=== PATIENT | male | born 1980 | race Caucasian/White ===

== ENCOUNTER 2024-08-02 09:21 | Outpatient (AMB) | payer OTHER, SELFPAY ==
--- NOTE | 2024-08-02 09:28 | MHC.PC.OV ---
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 Allergies No Known Allergies Allergy (Verified 08/02/24 09:38) Medication List - Last Reconciled 08/02/24 by Nathaniel Fleming CNP buprenorphine-naloxone 8-2 mg (Suboxone) 1 film buccal DAILY Tobacco use date assessed: 08/02/24 Dental Screening Dental Screen Date: 08/02/24 Did you have a dental visit in the last 12 months?: Yes Did you have a dental problem in the last 6 months where you did not have access to dental care?: No Was dental information given to patient?: Patient has dentist HPI HPI Comments History of Present Illness Details New patient Prior PCP:?[place] [facility] Last office visit/CPE: About 2 years Acute issue(s): Anxiety and Depression -He notes h/o Hydroxyzine 25mg daily w/o improvement. He took a low dose of Sertaline for 3-4 months without improvement He notes that he has been experiencing panic attack symptoms ( chest feels like it's going to blow, lack of energy in doing things, and social isolation) at least weekly for about a year. He notes that his anxiety symptoms have worsened in the pat 6-12 months. His sleep is sometimes interrupted by anxiety. 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 He get his Suboxone from a clinic He notes that he generally eats healthy. He does not exercise routinely He requests testosterone check. He notes that he checked his testosterone a few months ago and was below 100 PMHx: Anxiety, depression, OSCAR in remission SurgHx: None FHx: Mom: Mental illness. Dad: HTN, HLD SocHx: Smokes 10 cigarettes daily and has been smoking half a pack daily for thhe past 20 years . Drinks 1 shot of whiskey 1-2 times monthly . No recreational drugs Last eye exam was a couple years ago Last tetanus was 3-4 years ago He has not been vaccinated for the flu this season but intends to get vaccinated from the pharmacy [facility] Medical History (Updated 08/02/24 @ 10:13 by Nathaniel Fleming CNP) Shingles Depression Anxiety Family History (Updated 08/02/24 @ 09:40 by Aruna Hernández MA) Mother FH: mental illness Father High blood pressure High cholesterol Sister High blood pressure High cholesterol Diabetes Social History Housing: House Patient Tobacco Use Status: Current everyday Tobacco user Cigarette Packs Per Day: 0.5 Cigarettes Per Day: 10 e-Cigarette/Vaping Use: Never Used Second Hand Smoke Exposure: No service: No Current occupational status: employed Current occupational exposures/hazards: No Cognitive needs: No Hearing needs: No Vision needs: No Questionnaire PHQ-9 Over the last 2 weeks, how often have you been bothered by any of the following problems? 1. Little interest or pleasure in doing things: several days 2. Feeling down, depressed, or hopeless: not at all 3. Trouble falling or staying asleep, or sleeping too much: more than half the days 4. Feeling tired or having little energy: several days 5. Poor appetite or overeating: not at all 6. Feeling bad about yourself - or that you are a failure or have let yourself or your family down: more than half the days 7. Trouble concentrating on things, such as reading the newspaper or watching television: several days 8. Moving or speaking so slowly that other people could have noticed. Or the opposite - being so fidgety or restless that you have been moving around a lot more than usual: several days 9. Thoughts that you would be better off or of hurting yourself in some way: not at all Total score: 8 Depression Screening Interpretation: Positive Depression Screening Follow-up: Existing condition and New Medication prescribed Depression Screening Done: Yes 50853 - PHQ-9 Billing: Yes Source: Developed by Drs. Justice Reis, Georgia Reed, Devin Echavarria and colleagues, with an educational kenyatta from [employer]. Thrive Questionnaire Date Thrive assessed: 08/02/24 I am a: Patient What is your living situation today?: I have a steady place to live Within the past 12 months, did the food you bought not last and you didn't have the money to get more?: Never true Within the past 12 months, did you worry whether your food would run out before you got money to buy more?: Never true Do you have trouble paying for medicines?: No Do you have trouble getting transportation to medical appointments?: No Do you have trouble paying your heating and electricity bill?: No Do you have trouble with day-to-day activities such as bathing, preparing meals, shopping, managing finances, etc.?: No Are you currently unemployed and looking for a job?: Yes Are you interested in more education?: Yes Please select the resources that you would like help with: Job search/training and Education Currently or been in a relationship where the following occur: No concerns reported THRIVE Score: 0 AUDIT C Alcohol Use Questionnaire (AUDIT-C) 1. How often do you have a drink containing alcohol?: Monthly or less 2. How many drinks containing alcohol do you have on a typical day when you are drinking?: 1 or 2 3. How often do you have six or more drinks on one occasion?: Never Total Score: 1 Score Reviewed/Action Taken: Yes JORGE-7 AMB Questionnaire JORGE-7 Date JORGE - 7 assessed: 08/02/24 Feeling nervous, anxious, or on edge: 3 = Nearly every day Not being able to stop or control worryin = Nearly every day Worrying too much about different things: 3 = Nearly every day Trouble relaxin = Nearly every day Being so restless that it is hard to sit still: 3 = Nearly every day Becoming easily annoyed or irritable: 3 = Nearly every day Feeling afraid as if something awful might happen: 3 = Nearly every day Total JORGE-7 score (0-4 normal; 5-9 mild; 10-14 moderate; 15-21 severe): 21 Source: Developed by Drs. Justice Reis, Georgia Reed, Devin Echavarria and colleagues, with an educational kenyatta from [employer]. JORGE-7 Assessment Billing JORGE-7 Assessment Tool: JORGE-7 Assessment 21255 Review of Systems Const Details: Denies chills, Denies fatigue, Denies fever(s), Denies headache(s) and Denies weakness HEENT Denies change in vision, Denies dizziness, Denies headache(s), Denies hearing loss, Denies nasal congestion, Denies sinus pain, Denies sinus pressure and Denies sore throat Card Denies chest pain, Denies lightheadedness, Denies dyspnea and Denies other (palpitations) Resp Denies cough, Denies dyspnea and Denies wheezing GI Denies abdominal pain, Denies melena, Denies hematochezia, Denies change in bowel habits, Denies dyspepsia and Denies nausea Denies hematuria and Denies dysuria Musc Denies abnormal gait, Denies myalgias, Denies arthralgias, Denies numbness and Denies tingling Skin/Breast Denies rash, Denies unusual bruising and Denies wounds Neuro Denies abnormal gait, Denies dizziness, Denies headache(s), Denies memory loss, Denies numbness, Denies Sensory deficit (Neuro), Denies tingling and Denies weakness Psych Denies anxiety, Denies depression and Denies memory loss Endo Denies cold intolerance, Denies fatigue, Denies heat intolerance, Denies polydipsia and Denies polyuria Hernán/Lymph Denies easy bleeding and Denies easy bruising Aller/Immun Denies wheezing Physical exam (Primary Care) Vital Signs: Last Vital Signs Temp 98.0 F 08/02/24 09:34 Pulse 76 08/02/24 09:34 Resp 16 08/02/24 09:34 BP 120/70 08/02/24 09:34 Pulse Ox 97 08/02/24 09:34 Oxygen Delivery Method Room Air 08/02/24 09:34 BMI result Body Mass Index 35.2 Tobacco/Smoking Status: Tobacco use Status Tobacco use date assessed 08/02/24 08/02/24 09:40 Patient Tobacco Use Status Current everyday Tobacco 08/02/24 09:40 e-Cigarette/Vaping Use Never Used 08/02/24 09:40 PHQ-9: PHQ-9 Score PHQ-9: Total score 8 08/02/24 10:27 Depression Screening Interpretation: Positive Depression Screening Follow-up: Existing condition and New Medication prescribed Thrive Assessment: Date of Thrive Assessment Date Thrive assessed 08/02/24 08/02/24 09:46 Currently or been in a relationship where the following occur: No concerns reported Const Other: General: no acute distress, well developed, alert and awake Nutritional Appearance: well nourished Orientation/consciousness: patient oriented x3 HENMT Head: Yes normocephalic and Yes atraumatic Ears: hearing grossly normal bilaterally and TM's normal bilaterally General nose exam: Normal external nose present and Normal nares present Mouth: Normal oral and palatal mucosa present and moist mucous membranes Teeth and gingiva: dentition normal Throat: Yes oropharynx normal Eyes Pupils: Equal, round and reactive pupils present and Pupil accommodation reflex normal EOM: EOMs intact bilaterally Neck Neck: Yes normal visual inspection, Yes no lymphadenopathy and Yes trachea midline Thyroid: Thyroid normal Carotids: no bruits Lymphatic: no lymphadenopathy noted Chest Chest palpation & inspection: normal inspection of the chest Resp Effort & Inspection: normal respiratory effort Auscultation: clear to auscultation bilaterally Cardio Rate: regular rate Rhythm: regular rhythm Heart sounds: S1 normal heart sound present, S2 normal heart sound present, no gallops, no murmurs and no rubs Bruits: no abdominal aortic bruits and no carotid bruits GI Palpation (GI): No Abdominal aortic bruit present, Soft to palpation, nontender, No hepatosplenomegaly present and No Rebound tenderness present Auscultation: normal bowel sounds General: Yes no CVA tenderness Back/Spine/Pelvis Back: no CVA tenderness Cervical Spine: cervical ROM normal and No Cervical spine tenderness Thoracic/Lumbar Spine: thoraco-lumbar ROM normal, No pain with thoraco-lumbar ROM, No thoracic spinal tenderness and No lumbar spinal tenderness Skin General: warm and dry. Normal skin color. Normal skin turgor Lesions: no lesions Rashes: no rashes Trauma: no lacerations or abrasions Wounds: no wounds Nails: normal Neuro General: patient oriented x3, gait normal and CN's II-XI intact bilaterally Cranial nerves: Yes Equal, round and reactive pupils present Cognition (Neuro): normal cognition Gait exam (Neuro): Normal gait present Motor exam (neuro): 5/5 motor strength present throughout Sensory Exam: No Sensory deficit (Neuro) Deep tendon reflexes (DTR's): Right patellar reflex intensity grade: 2+ and Left patellar reflex intensity grade: 2+ Extrem General: Yes normal to inspection, No edema and No calf tenderness Psych Appearance: grossly normal Affect: normal affect Attitude: cooperative Thought process: Normal thought process present Coding Level of Care Code New Pt Level 4 (18467) New Pt Prev Care 40-64y(70427) Diagnoses Normal physical examination, routine Z00.00 Anxiety F41.9 Depression F32.A Obesity (BMI 30-39.9) E66.9 Eye exam, routine Z01.00 Smoking 1/2 pack a day or less F17.210 Laboratory tests ordered as part of a complete physical exam (CPE) Z00.00 Additional Codes JORGE-7 Assessment Billing - JORGE-7 Assessment Tool: JORGE-7 Assessment 71250 ([id number]) Assessment & Plan Assessment & Plan (1) Normal physical examination, routine: Code(s): Z00.00 - Encounter for general adult medical examination without abnormal findings Category: Medical Plan: No significant physical restrictions or limitations noted Healthy diet and routine exercise encouraged Follow-up in 2 weeks for anxiety and depression or sooner with worsening or new symptoms Verbalized understanding and agreed with the treatment plan (2) Anxiety: Code(s): F41.9 - Anxiety disorder, unspecified Category: Medical Plan: Reports history of anxiety and depression. He notes anxiety symptoms with intermittent feelings of panic attacks. His anxiety has progressively worsened within the past 6-12 months. Anxiety symptoms sometimes interferes with his sleep. Hydroxyzine was not effective. He was on a low-dose of sertraline for 3-4 months without improvement. He denies SI/HI PHQ-9 and JORGE-7 scores revealed mild depression and severe anxiety respectively Will start fluoxetine 20 mg daily. Advised to take as prescribed. Instructed on the risks, benefits, and potential adverse reactions of the medication Routine exercise encouraged Follow-up in 2 weeks or sooner with worsening or new symptoms Verbalized understanding and agreed with treatment plan (3) Depression: Code(s): F32.A - Depression, unspecified Category: Medical Plan: Plan as above (4) Obesity (BMI 30-39.9): Code(s): E66.9 - Obesity, unspecified Category: Medical Plan: He currently weighs 245 lb, BMI is 35.2 He does not exercise Healthy diet and routine exercise encouraged Referred to [facility] dietitian (5) Eye exam, routine: Code(s): Z01.00 - Encounter for examination of eyes and vision without abnormal findings Category: Medical Plan: Last eye exam was a couple years ago Referred to Ophthalmology for routine eye exam (6) Smoking 1/2 pack a day or less: Code(s): F17.210 - Nicotine dependence, cigarettes, uncomplicated Category: Social Hx Plan: He smokes 10 cigarettes daily and has been smoking half a pack daily for the past 20 years Declines medication treatment for smoking cessation at this time Instructed on health risks and complications of cigarette smoking smoking cessation encouraged He may notify his PCP as needed for medication treatment Verbalized understanding and agreed with the plan (7) Laboratory tests ordered as part of a complete physical exam (CPE): Code(s): Z00.00 - Encounter for general adult medical examination without abnormal findings Category: Medical Plan: Fasting labs ordered as part of a complete physical exam. Advised to fast for at least 10 hours before getting labs drawn. May drink water Verbalized understanding and agreed with treatment plan. Orders: Orders UA CC w/rflx Micro + Cult Today Z00.00 - Encounter for general adult medical examination without abnormal findings Complete Blood Count Auto Diff Today Z00.00 - Encounter for general adult medical examination without abnormal findings Comprehensive [place]. Panel Fast Today Z00.00 - Encounter for general adult medical examination without abnormal findings Lipid Panel Today Z00.00 - Encounter for general adult medical examination without abnormal findings Microalbumin, Random (w Creat) Today Z00.00 - Encounter for general adult medical examination without abnormal findings TSH reflex Free T4 Today Z00.00 - Encounter for general adult medical examination without abnormal findings PSA, Ultra Sensitive Today Z00.00 - Encounter for general adult medical examination without abnormal findings Testosterone, Free/Total Today Z00.00 - Encounter for general adult medical examination without abnormal findings Referrals Nutrition/Dietitian Referral E66.9 - Obesity, unspecified Ophthalmology Referral Z01.00 - Encounter for examination of eyes and vision without abnormal findings Medications: New fluoxetine 20 mg PO DAILY 30 tabs 3RF 30 days
[2024-08-02 09:34] VITALS: BP 120/70; PULSE 76; RESP 16; TEMP 36.7; O2SAT 97; BMI 35.2
== END 2024-08-02 10:12 | disposition home or self-care (01) ==
PROVIDERS: Visit Provider Nurse Practitioner Family
DX: Z00.00 Encounter for general adult medical examination without abnormal findings (principal); E66.812 Obesity, class 2; Z68.35 Body mass index [BMI] 35.0-35.9, adult; F41.9 Anxiety disorder, unspecified; F32.A Depression, unspecified; F17.210 Nicotine dependence, cigarettes, uncomplicated

== ENCOUNTER → 2024-08-02 09:21 | Outpatient (BNVA) | payer OTHER, SELFPAY | PROVIDERS: Visit Provider Nurse Practitioner Family | DX: Z00.00 Encounter for general adult medical examination without abnormal findings (principal); F41.9 Anxiety disorder, unspecified; F32.A Depression, unspecified; E66.9 Obesity, unspecified; F17.210 Nicotine dependence, cigarettes, uncomplicated; Z71.6 Tobacco abuse counseling | CPT/HCPCS: 96127; 99202; 99386 ==

== ENCOUNTER 2024-08-02 10:21 | Outpatient (REF) | payer OTHER, SELFPAY ==
[2024-08-02 14:10] LABS: MANUAL DIFF FLAG NO
[2024-08-02 14:16] LABS: Basophils Percent Auto 0.4 % (0-2); Eosinophils Absolute Auto 0.3 X10*3/uL (0.0-0.4); Eosinophils Percent Auto 4.2 % (0-4); Hemoglobin 15.2 g/dl (14.0-18.0); Imm Gran Abs Auto 0.02 X10*3/uL (0.00-0.03); Imm Gran Pct Auto 0.3 % (0.0-0.4); Lymphocytes Absolute Auto 1.7 X10*3/uL (1.2-4.9); Lymphocytes Percent Auto 25.6 % (20-40); Mean Corpuscular HGB Conc 33.8 g/dl (31.0-36.0); Mean Corpuscular Hemoglobin 29.4 pg (27.0-33.0); Mean Platelet Volume 10.3 fL (9.4-12.4); Monocytes Absolute Auto 0.5 X10*3/uL (0.1-1.2); Monocytes Percent Auto 7.6 % (2-11); Neutrophils Absolute Auto 4.2 x10*3/uL (2.0-8.3); Neutrophils Percent Auto 61.9 % (45-73); Platelet Count 199 X10*3/uL (160-400); Red Blood Count 5.17 X10*6/uL (4.60-5.80); Red Cell Distribution Width 11.9 % (11.0-16.0); White Blood Count 6.7 X10*3/uL (4.8-10.8)
[2024-08-02 14:17] LABS: Appearance Urine Clear; Color Urine Yellow; Glucose Urine UA Negative (Negative); Leukocyte Esterase Urine Negative (Negative); Nitrite Urine Negative (Negative); Specific Gravity - Urine 1.025 (1.005-1.025); Urine Blood Negative (Negative); Urine Ketones Negative (Negative); Urine Protein Negative (Neg-Trace)
[2024-08-02 14:41] LABS: Alanine Aminotransferase 28 U/L (0-40); Alkaline Phosphatase 68 U/L (39-117); Anion Gap 9 (12-20); Aspartate Amino Transferase 25 U/L (5-37); Bilirubin Total 1.1 mg/dL (0.0-1.0); Blood Urea Nitrogen 22 mg/dL (9-16); Calcium 9.3 mg/dL (8.4-10.2); Carbon Dioxide 27 mmol/L (22-29); Chloride 107 mmol/L (96-108); Cholesterol 148 mg/dL (<200); Estimated Glomerular Filt Rate > 60; Glucose Fasting 125 mg/dL (60-99); HDL Cholesterol 39 mg/dL (>40); LDL Cholesterol Calculated 89 mg/dL (<100); Potassium 4.2 mmol/L (3.3-5.1); Sodium 139 mmol/L (135-145); Triglycerides 103 mg/dL (<150)
[2024-08-02 14:41] LABS: Creatinine Urine 123.72 mg/dL; Microalbumin Urine < 5.0 mg/L
[2024-08-02 14:59] LABS: TSH reflex Free T4 1.45 uIU/mL (0.32-4.0)
[2024-08-06 18:03] LABS: Testosterone, Free 27.9 pg/mL (35.0-155.0); Testosterone, Total 171 ng/dL (250-1100)
[2024-08-08 14:48] LABS: PSA, Ultra Sensitive 0.54 ng/mL
== END 2024-08-02 10:22 | disposition home or self-care (01) ==
LOC: HO.WFDLDS 10:21
PROVIDERS: Visit Provider Nurse Practitioner Family
DX: Z00.00 Encounter for general adult medical examination without abnormal findings (principal)
CPT/HCPCS: 36415; 80053; 80061; 81003; 82570; 84153; 84402; 84403; 84443; 85025

== ENCOUNTER 2024-08-11 09:35 | Outpatient (AMB) | payer OTHER, SELFPAY ==
[2024-08-11 09:41] VITALS: BMI 35.5
--- NOTE | 2024-08-11 09:41 | A.OFFVIS_ITS ---
VS Expanded 08/11/24 09:41 08/12/24 13:00 Height 5 ft 10 in 5 ft 10 in Weight 247 lb 5.738 oz 247 lb BMI 35.5 35.4 Intake Visit Reasons: Obesity/CONFIRMED Allergies No Known Allergies Allergy (Verified 08/02/24 09:38) Nutrition Presentation Details: Pt presents for MNT for obesity. Pt was referred by PCP food frequency beverages: soda/juices starches > 30 serving/ fish:not including dairy: 4+ vegetables: 2x/wk beverages: reg soda 4+/d physical activity: currently sedentary etoh: occ 1-2 smoking 1/2 ppd BS Monitoring Most Recent Diabetes Results: Hemoglobin A1c 5.1 % 11/30/18 Microalb/Creat Ratio TNP 08/02/24 Cholesterol 148 mg/dL (<200) 08/02/24 HDL Cholesterol 39 mg/dL (>40) L 08/02/24 Triglycerides 103 mg/dL (<150) 08/02/24 Creatinine 0.82 mg/dL (0.5-1.4) 08/02/24 Blood Urea Nitrogen 22 mg/dL (9-16) H 08/02/24 Sodium 139 mmol/L (135-145) 08/02/24 Potassium 4.2 mmol/L (3.3-5.1) 08/02/24 Chloride 107 mmol/L (96-108) 08/02/24 Carbon Dioxide 27 mmol/L (22-29) 08/02/24 Calcium 9.3 mg/dL (8.4-10.2) 08/02/24 AST 25 U/L (5-37) 08/02/24 ALT 28 U/L (0-40) 08/02/24 Total Protein 7.0 g/dL (6.5-8.0) 08/02/24 Albumin 4.0 g/dL (3.5-5.0) 08/02/24 IZJ-Bgpbemc-Eo.Jeor Equation Height: 5 ft 10 in Weight: 247 lb Resting Metabolic Rate: 2008.18 Calculated Activity Level: Sedentary Calories Needed to Maintain Weight: 2411.02 Diagnosis Nutrition problem #1: excessive energy intake As related to (etiology) #1: diagnosis As evidenced by (sign/symptom) #1: knowledge deficit of diet [facility] Medical History (Updated 08/02/24 @ 10:13 by Nathaniel Fleming CNP) Shingles Depression Anxiety Family History (Updated 08/02/24 @ 09:40 by Aruna Hernández MA) Mother FH: mental illness Father High blood pressure High cholesterol Sister High blood pressure High cholesterol Diabetes Social History Housing: House Patient Tobacco Use Status: Current everyday Tobacco user Cigarette Packs Per Day: 0.5 Cigarettes Per Day: 10 e-Cigarette/Vaping Use: Never Used Second Hand Smoke Exposure: No service: No Current occupational status: employed Current occupational exposures/hazards: No Cognitive needs: No Hearing needs: No Vision needs: No Assessment & Plan Assessment & Plan (1) Obesity (BMI 30-39.9): Code(s): E66.9 - Obesity, unspecified Category: Medical Plan: Wt: 112 Kg ( 08/19 ) Est kcal needs as per MSJ: 2400 (40% carb, 30% protein/fat) Est fluid needs as per 25-30 ml/d: 3400 Est prot per day as per 1 g/kg bw: 112 Recommend fiber intake : 8-10 g per day and gradually increase to 25-28 g per day for women and 35-38 g for men or as tolerated Recommend sodium intake per day : less than 2300 mg Educated patient on: ( R = reviewed V = verbalizes understanding N/R = needs review N/A = not applicable * Food sources of carbohydrate, adequate serving sizes and its role in various health conditions: R * Differences between complex carbohydrates a simple carbohydrates, role of fiber in diet: R V N/R * Lean protein sources of foods: R V NR * Differences between types of fats and role in diet (mono on saturated fat fatty acids, saturated fatty acids, trans fats): R V N/R * Food sources of sodium in salt and healthy modifications for heart health in kidney health: R V R/V * Vitamins and minerals: R V N/R * Healthy plate method concept: R V N/R * Physical activity: Benefits a precaution: R V N/R * Hypoglycemia protocol (rule of 15): R V N/R * Dietary prevention of Hyperglycemia: R Patient Instructions: Have water/ seltzer water in place of soda /juices Reduce portion of pasta/rice at night time see meal ideas following healthy plate method Coding Level of Care Code Nutr Indiv Intake (58037) Diagnoses Obesity (BMI 30-39.9) E66.9 Time Spent (min) 30
[2024-08-12 13:00] VITALS: BMI 35.4
== END 2024-08-11 09:57 | disposition home or self-care (01) ==
PROVIDERS: Visit Provider Dietitian, Registered
DX: E66.9 Obesity, unspecified (principal)

== ENCOUNTER → 2024-08-11 09:35 | Outpatient (BNVA) | payer OTHER, SELFPAY | PROVIDERS: Visit Provider Dietitian, Registered | DX: E66.9 Obesity, unspecified (principal); Z68.35 Body mass index [BMI] 35.0-35.9, adult | CPT/HCPCS: 97802 ==

== ENCOUNTER 2024-08-18 10:43 | Outpatient (AMB) | payer OTHER, SELFPAY ==
--- NOTE | 2024-08-18 10:51 | MHC.PC.OV ---
Vital Signs 08/18/24 10:57 Height 5 ft 10 in Weight 244 lb BMI 35.0 BP 122/64 Blood Pressure Location Lt brachial Position Sitting Respiration 16 Pulse 93 Pulse Source Pulse Oximeter Temp 98.3 F Temp Source Oral Pulse Oximetry (%) 94 Oxygen Delivery Method Room Air Intake Visit Reasons: 2 wks anxiety, depression Intake Note: patient here to follow up on anxiety and depression. Fish Bait Picker Required: No Allergies No Known Allergies Allergy (Verified 08/18/24 11:16) Medication List - Last Reconciled 08/18/24 by Nathaniel Fleming CNP fluoxetine 20 mg PO DAILY 30 days Tobacco use date assessed: 08/18/24 Dental Screening Dental Screen Date: 08/18/24 Did you have a dental visit in the last 12 months?: Yes Did you have a dental problem in the last 6 months where you did not have access to dental care?: No Was dental information given to patient?: Patient has dentist HPI HPI Comments History of Present Illness Details 44-year-old male presents for anxiety, depression, and review of recent lab results follow-up He admits to taking fluoxetine as prescribed without adverse reactions He reports controlled anxiety and depressive symptoms He offers no complaints and denies acute symptoms at this time [facility] Medical History (Updated 08/18/24 @ 11:26 by Nathaniel Fleming CNP) Shingles Depression Anxiety Family History (Updated 08/02/24 @ 09:40 by Aruna Hernández MA) Mother FH: mental illness Father High blood pressure High cholesterol Sister High blood pressure High cholesterol Diabetes Social History Housing: House Patient Tobacco Use Status: Current everyday Tobacco user Cigarette Packs Per Day: 0.5 Cigarettes Per Day: 10 e-Cigarette/Vaping Use: Never Used Second Hand Smoke Exposure: No service: No Current occupational status: employed Current occupational exposures/hazards: No Cognitive needs: No Hearing needs: No Vision needs: No Questionnaire PHQ-9 Over the last 2 weeks, how often have you been bothered by any of the following problems? 1. Little interest or pleasure in doing things: several days 2. Feeling down, depressed, or hopeless: not at all 3. Trouble falling or staying asleep, or sleeping too much: not at all 4. Feeling tired or having little energy: not at all 5. Poor appetite or overeating: not at all 6. Feeling bad about yourself - or that you are a failure or have let yourself or your family down: not at all 7. Trouble concentrating on things, such as reading the newspaper or watching television: several days 8. Moving or speaking so slowly that other people could have noticed. Or the opposite - being so fidgety or restless that you have been moving around a lot more than usual: not at all 9. Thoughts that you would be better off or of hurting yourself in some way: not at all Total score: 2 Depression Screening Interpretation: Negative Depression Screening Done: Yes 68947 - PHQ-9 Billing: Yes Source: Developed by Drs. Justice Reis, Georgia Reed, Devin Echavarria and colleagues, with an educational kenyatta from [email or web address]. Thrive Questionnaire Date Thrive assessed: 08/18/24 I am a: Patient What is your living situation today?: I have a steady place to live Within the past 12 months, did the food you bought not last and you didn't have the money to get more?: Never true Within the past 12 months, did you worry whether your food would run out before you got money to buy more?: Never true Do you have trouble paying for medicines?: No Do you have trouble getting transportation to medical appointments?: No Do you have trouble paying your heating and electricity bill?: No Do you have trouble taking care of your child, family member or friend?: No Do you have trouble with day-to-day activities such as bathing, preparing meals, shopping, managing finances, etc.?: No Are you currently unemployed and looking for a job?: I choose not to answer this question Are you interested in more education?: Yes Please select the resources that you would like help with: Job search/training Currently or been in a relationship where the following occur: No concerns reported THRIVE Score: 0 AUDIT C Alcohol Use Questionnaire (AUDIT-C) 1. How often do you have a drink containing alcohol?: 2-4 times a month 2. How many drinks containing alcohol do you have on a typical day when you are drinking?: 1 or 2 3. How often do you have six or more drinks on one occasion?: Never Total Score: 2 JORGE-7 AMB Questionnaire JORGE-7 Date JORGE - 7 assessed: 08/18/24 Feeling nervous, anxious, or on edge: 0 = Not at all Not being able to stop or control worryin = Several days Worrying too much about different things: 1 = Several days Trouble relaxin = Several days Being so restless that it is hard to sit still: 1 = Several days Becoming easily annoyed or irritable: 1 = Several days Feeling afraid as if something awful might happen: 0 = Not at all Total JORGE-7 score (0-4 normal; 5-9 mild; 10-14 moderate; 15-21 severe): 5 Source: Developed by Drs. Justice Reis, Georgia Reed, Devin Echavarria and colleagues, with an educational kenyatta from [email or web address]. JOGRE-7 Assessment Billing JORGE-7 Assessment Tool: JORGE-7 Assessment 43334 Review of Systems Const Details: Const Denies chills, Denies fatigue, Denies fever(s), Denies headache(s) and Denies weakness ENT Denies dizziness and Denies headache(s) Card Denies chest pain, Denies lightheadedness, Denies dyspnea and Denies other (Palpitations) Resp Denies cough, Denies dyspnea, Denies wheezing and Denies other ( shortness of breath) GI Denies abdominal pain, Denies melena, Denies hematochezia, Denies change in bowel habits, Denies dyspepsia and Denies nausea Denies hematuria and Denies dysuria Musc Denies abnormal gait, Denies myalgias, Denies arthralgias, Denies numbness and Denies tingling Skin/Breast Denies rash, Denies unusual bruising and Denies wounds Neuro Denies abnormal gait, Denies dizziness, Denies headache(s), Denies memory loss, Denies numbness, Denies Sensory deficit (Neuro), Denies tingling and Denies weakness Psych Denies anxiety, Denies depression, Denies memory loss Endo Denies cold intolerance, Denies fatigue, Denies heat intolerance, Denies polydipsia and Denies polyuria Aller/Immun Denies wheezing Physical exam (Primary Care) Vital Signs: Last Vital Signs Temp 98.3 F 08/18/24 10:57 Pulse 93 08/18/24 10:57 Resp 16 08/18/24 10:57 BP 122/64 08/18/24 10:57 Pulse Ox 94 10/23/24 10:57 Oxygen Delivery Method Room Air 08/18/24 10:57 BMI result Body Mass Index 35.0 Tobacco/Smoking Status: Tobacco use Status Tobacco use date assessed 08/18/24 08/18/24 10:59 Patient Tobacco Use Status Current everyday Tobacco 08/18/24 10:52 e-Cigarette/Vaping Use Never Used 08/18/24 10:52 PHQ-9: PHQ-9 Score PHQ-9: Total score 2 08/18/24 10:59 Depression Screening Interpretation: Negative Thrive Assessment: Date of Thrive Assessment Date Thrive assessed 08/18/24 08/18/24 10:59 Currently or been in a relationship where the following occur: No concerns reported Const Other: General: no acute distress and well developed Nutritional Appearance: well nourished Orientation/consciousness: patient oriented x3 HENMT Head: Yes normocephalic and Yes atraumatic Eyes General: appearance normal, both eyes and all related structures Pupils: Equal, round and reactive pupils present EOM: EOMs intact bilaterally Resp Effort & Inspection: normal respiratory effort Auscultation: clear to auscultation bilaterally Cardio Rate: regular rate Rhythm: regular rhythm Heart sounds: S1 normal heart sound present, S2 normal heart sound present, no gallops, no murmurs and no rubs GI Palpation (GI): No Abdominal aortic bruit present, Soft to palpation, nontender, No hepatosplenomegaly present and No Rebound tenderness present Auscultation: normal bowel sounds General: Yes no CVA tenderness Back/Spine/Pelvis Back: no CVA tenderness Cervical Spine: cervical ROM normal and No Cervical spine tenderness Thoracic/Lumbar Spine: thoraco-lumbar ROM normal, No pain with thoraco-lumbar ROM, No thoracic spinal tenderness and No lumbar spinal tenderness Extrem General: Yes normal to inspection, No edema and No calf tenderness Skin General: warm and dry. Normal skin color. Normal skin turgor Neuro General: patient oriented x3, gait normal and no focal neuro deficit Cranial nerves: Yes Equal, round and reactive pupils present Cognition (Neuro): normal cognition Gait exam (Neuro): Normal gait present Sensory Exam: No Sensory deficit (Neuro) Psych Appearance: grossly normal Affect: normal affect Attitude: cooperative Thought process: Normal thought process present Coding Level of Care Code Est Pt Level 3 (20613) Diagnoses Anxiety F41.9 Depression F32.A Low testosterone R79.89 Low HDL (under 40) E78.6 Additional Codes JORGE-7 Assessment Billing - JORGE-7 Assessment Tool: JORGE-7 Assessment 72913 ([id number]) Assessment & Plan Assessment & Plan (1) Anxiety: Code(s): F41.9 - Anxiety disorder, unspecified Category: Medical Plan: Controlled anxiety and depressive symptoms PHQ-9 score is normal. JORGE-7 score reveals mild anxiety Continue current treatment regimen Routine exercise encouraged Follow-up in 1 month or sooner with worsening or new symptoms Verbalized understanding and agreed with the treatment plan (2) Depression: Code(s): F32.A - Depression, unspecified Category: Medical Plan: Plan as above (3) Low testosterone: Code(s): R79.89 - Other specified abnormal findings of blood chemistry Category: Medical Plan: Recent total testosterone and free testosterone levels are low, 171 and 27.9 respectively Referred to endocrinology (4) Low HDL (under 40): Code(s): E78.6 - Lipoprotein deficiency Category: Medical Plan: Recent HDL level is slightly low, 39 Advised to limit foods high in saturated fat and avoid foods high in trans fat Routine exercise encouraged Verbalized understanding and agreed with the plan Orders: Referrals Endocrinology Referral R79.89 - Other specified abnormal findings of blood chemistry
[2024-08-18 10:57] VITALS: BP 122/64; PULSE 93; RESP 16; TEMP 36.8; O2SAT 94; BMI 35.0
== END 2024-08-18 11:27 | disposition home or self-care (01) ==
PROVIDERS: PCP Nurse Practitioner Family; Visit Provider Nurse Practitioner Family
DX: F41.9 Anxiety disorder, unspecified (principal); F32.A Depression, unspecified; R79.89 Other specified abnormal findings of blood chemistry; E78.6 Lipoprotein deficiency

== ENCOUNTER → 2024-08-18 10:43 | Outpatient (BNVA) | payer OTHER, SELFPAY | PROVIDERS: Visit Provider Nurse Practitioner Family | DX: F41.9 Anxiety disorder, unspecified (principal); F32.A Depression, unspecified; R79.89 Other specified abnormal findings of blood chemistry; E78.6 Lipoprotein deficiency | CPT/HCPCS: 96127; 99212 ==

== ENCOUNTER 2024-08-26 15:03 | Outpatient (AMB) | payer OTHER, SELFPAY ==
--- NOTE | 2024-08-26 15:13 | A.OFFVIS_ITS ---
Vital Signs 08/26/24 15:14 Height 5 ft 10 in Weight 240 lb 1.334 oz BMI 34.4 BP 98/70 Blood Pressure Location Lt brachial Position Sitting Pulse 88 Pulse Source Pulse Oximeter Intake Visit Reasons: Other specified abnormal findings of blood chem Intake Note: Patient present today for other specified abnormal findings of blood chem. Greeting Card Maker Required: No Accompanied by: Self / Same As Patient Allergies No Known Allergies Allergy (Verified 08/26/24 15:18) Medication List - Last Reconciled 08/26/24 by Justice Peguero MD fluoxetine 20 mg PO DAILY 30 days HPI Comments Details: 44 YO Male who is seen in consultation at the request of his PCP for Hypogonadism. Yrs ago has 300 testosterone and recently 6-7 mos ago had 80 testosterone . Never saw endo before Not Was started on Testosterone supplementation . Not Currently using testosterone. Currently not achieving spontaneous am erections, and unable to achieve erection when desired. Reports low libido. Decreased facial hair and shaving frequency. Denies any change in size or shape of testicles. Denies penile discharge or scrotal tenderness. Denies any history of mumps orchitis. Denies any head trauma. Denies history of AVRIL But snores at night Not with no children . Not looking to have children Has Sense of smell not intact. Denies headache or visual changes, gynecomastia or galactorrhea. Denies orthostatic symptoms, weight loss. Denies change in size of hands or feet. Denies hair loss, weight gain 50 lbs in 8 mos , cold intolerance. History of DVT or PE: No Use of methadone in past 4 yrs ago or no heroin or marijuana : Use of anabolic steroids: No Labs: PSA CBC [facility] Medical History (Updated 08/18/24 @ 11:26 by Nathaniel Fleming CNP) Shingles Depression Anxiety Family History Mother FH: mental illness Father High blood pressure High cholesterol Sister High blood pressure High cholesterol Diabetes Social History Housing: House Patient Tobacco Use Status: Current everyday Tobacco user Cigarette Packs Per Day: 0.5 Cigarettes Per Day: 10 e-Cigarette/Vaping Use: Never Used Second Hand Smoke Exposure: No service: No Current occupational status: employed Current occupational exposures/hazards: No Cognitive needs: No Hearing needs: No Vision needs: No Physical Exam Vital Signs: Last Vital Signs Pulse 88 08/26/24 15:14 BP 98/70 08/26/24 15:14 BMI result Body Mass Index 34.4 There is the absence of eunichoidal proportions. Neck exam reveals nl thyroid about 15 gms. Chest exam reveals absence of gynecomastia. Lungs CTA. Heart is S1 S2 Reg R/R. -M/R/G. Abdominal exam is benign. Muscle strength is 5/5 proximally. Examination of genitalia reveals nl size pthalus . Testes are of nl size and consistency. There is Dell Stage V Hair development Assessment & Plan Assessment & Plan (1) Low testosterone: Code(s): R79.89 - Other specified abnormal findings of blood chemistry Category: Medical Plan: This is a 44-year-old male found to have a low testosterone free testosterone level. We will workup for hypogonadism Plan is to recheck free and total testosterone in 8 a.m. fasting along with LH and FSH. Further workup based on the above. I will message the patient's primary care provider to do workup for sleep apnea as we working the patient up for hypogonadism and preparation for testosterone therapy in the future Orders: Orders Follicle Stimulating Hormone Today R79.89 - Other specified abnormal findings of blood chemistry Testosterone, Free/Total Today R79.89 - Other specified abnormal findings of blood chemistry Lutenizing Hormone Today R79.89 - Other specified abnormal findings of blood chemistry Coding Level of Care Code New Pt Level 4 (77544) Diagnoses Low testosterone R79.89
[2024-08-26 15:14] VITALS: BP 98/70; PULSE 88; BMI 34.4
== END 2024-08-26 15:43 | disposition home or self-care (01) ==
LOC: HO.ENCR 15:05
PROVIDERS: PCP Nurse Practitioner Family; Visit Provider Internal Medicine Endocrinology, Diabetes & Metabolism
DX: R79.89 Other specified abnormal findings of blood chemistry (principal)
CPT/HCPCS: 99204

== ENCOUNTER → 2024-08-26 15:03 | Outpatient (BNVA) | payer OTHER, SELFPAY | PROVIDERS: PCP Nurse Practitioner Family; Visit Provider Internal Medicine Endocrinology, Diabetes & Metabolism | DX: R79.89 Other specified abnormal findings of blood chemistry (principal) | CPT/HCPCS: 99202 ==

== ENCOUNTER 2024-09-01 08:53 | Outpatient (REF) | payer OTHER, SELFPAY ==
[2024-09-02 09:29] LABS: Lutenizing Hormone 1.9 mIU/mL (1.5-9.3)
[2024-09-07 20:17] LABS: Testosterone, Free 17.8 pg/mL (35.0-155.0); Testosterone, Total 93 ng/dL (250-1100)
== END 2024-09-01 08:54 | disposition home or self-care (01) ==
LOC: HO.10HDL 08:53
PROVIDERS: Visit Provider Internal Medicine Endocrinology, Diabetes & Metabolism
DX: R79.89 Other specified abnormal findings of blood chemistry (principal); R06.83 Snoring; G47.19 Other hypersomnia
CPT/HCPCS: 36415; 83001; 83002; 84402; 84403; 99202

== ENCOUNTER 2024-09-01 09:37 | Outpatient (AMB) | payer OTHER, SELFPAY ==
[2024-09-01 09:39] VITALS: BP 112/68; PULSE 77; O2SAT 94; BMI 35.2
--- NOTE | 2024-09-01 09:39 | A.OFFVIS_ITS ---
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 Patient reports he was advsied to have a sleep eval to assess for sleep apnea as he is undergoing work-up for possible hypogonadism. Pt states he has slept poorly for at least the last couple of years. He is prone to frequent nocturnal arousals. He notes along history of right fingertips feeling numbness. In the last couple of months, has noticed right lower lateral thigh numbness. Has had wt gain over the last 6-8 months d/t depression/mood. Sleep history questionnaire: Have you ever been diagnosed with a sleep disorder? No Have you ever had a sleep study in the past? No Have you ever been treated for a sleep disorder? No Do you take medications/supplements for a sleep disorder? Previously used marsha azepam, which helped, but is no longer prescribed. Current sleep symptom questionnaire: Pt reports difficulty maintaining sleep, unrefreshing sleep, daytime sleepiness, easily falls asleep when inactive, fatigue, . Pt reports snoring, apneas, witnessed apneas. Pt reports morning dry mouth Pt reports h/o deviated septum d/t h/o drug use. Not currently f/b ENT. 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 Works shift work: 7am-4pm- varies a little. Usual bedtime is at 8-9pm Usual time to fall asleep 8-9pm- but prone to fall asleep on the couch Usual wake-up time every couple of hours Usual out of bed time is at 6-8am Naps: Does not take regular naps. Takes unintentional unscheduled naps Sleep environment: comfortable, cool, dark, quiet Electronic use in bedroom: none Exercise: None- active at work. Caffeine or other stimulants: 1 cup of espresso per day after lunch- tradition. occasionally takes a decaf coffee. Alcohol intake: 1 shot 2-3 days per week [facility] Medical History (Updated 09/01/24 @ 10:23 by BRO Marin) Shingles Depression Anxiety Family History Mother FH: mental illness Father High blood pressure High cholesterol Sister High blood pressure High cholesterol Diabetes Social History Housing: House Patient Tobacco Use Status: Current everyday Tobacco user Cigarette Packs Per Day: 0.5 Cigarettes Per Day: 10 e-Cigarette/Vaping Use: Never Used Second Hand Smoke Exposure: No service: No Current occupational status: employed Current occupational exposures/hazards: No Cognitive needs: No Hearing needs: No Vision needs: No Physical Exam Vital Signs: Last Vital Signs Pulse 77 09/01/24 09:39 BP 112/68 09/01/24 09:39 Pulse Ox 94 09/01/24 09:39 Oxygen Delivery Method Room Air 09/01/24 09:39 BMI result Body Mass Index 35.2 Const General: no acute distress and tired appearing Orientation/consciousness: patient oriented x3 HEENT Other: Mallampati stage 4 Deviated septum Resp Effort & Inspection: normal respiratory effort and able to speak in complete sentences Auscultation: clear to auscultation bilaterally Cardio Rate: regular rate Rhythm: regular rhythm Neuro General: patient oriented x3 Cranial nerves: Yes CN's II-XII intact bilaterally Gait exam (Neuro): Normal gait present Motor exam (neuro): 5/5 motor strength present throughout Psych Mental Status: mental status grossly normal Speech and movement: Clear speech present Attitude: cooperative Assessment & Plan Assessment & Plan (1) Snoring: Code(s): R06.83 - Snoring Category: Medical (2) Excessive daytime sleepiness: Code(s): G47.19 - Other hypersomnia Category: Medical Plan Pt is advised to undergo Home sleep study to assess for sleep apnea. Will also request ENT consult to assess for if nasal deviation is amenable to sx intervention. Upon review of sleep study results, will f/u with pt to discuss results and appropriate treatment options. For c/o right lateral thigh numbness, which is suggestive of meralgia paresthetica likely triggered by weight gain and frequent sleeping on his couch. Pt advised to avoid sleeping on his couch. Wt loss would also likely be beneficial. If this worsens, will consider further work-up. Pt seen in c/w Dr Georgia Maldonado Will follow-up upon review of above and patient to follow-up in clinic in 6 months or sooner prn. . Orders: Orders RT home sleep study Today G47.19 - Other hypersomnia, G47.9 - Sleep disorder, unspecified, R06.83 - Snoring Referrals Ear/Nose/Throat Referral J34.2 - Deviated nasal septum, R06.83 - Snoring Coding Level of Care Code New Pt Level 4 (87227) Diagnoses Snoring R06.83 Excessive daytime sleepiness G47.19 [place]erson Sleepiness Scale Questions Sitting and reading: moderate chance of dozing Watching TV: moderate chance of dozing Sitting inactive in a theater, movie etc.: slight chance of dozing As a passenger in a car for an hour without break: would never doze Lying down in the afternoon when circumstances permit: high chance of dozing Sitting and talking to someone: would never doze Sitting quietly after lunch without alcohol: moderate chance of dozing In a car, while stopped for a few minutes in the traffic: would never doze ESS < 10: normal, ESS > 12: pathologic: 10
== END 2024-09-01 10:30 | disposition home or self-care (01) ==
LOC: HO.HSMS 09:38
PROVIDERS: PCP Nurse Practitioner Family; Visit Provider Nurse Practitioner Family
DX: R06.83 Snoring (principal); G47.19 Other hypersomnia
CPT/HCPCS: 99204

== ENCOUNTER 2024-09-08 08:34 | Outpatient (AMB) | payer OTHER, SELFPAY ==
[2024-09-08 08:40] VITALS: BMI 34.0
--- NOTE | 2024-09-08 08:40 | A.OFFVIS_ITS ---
VS Expanded 09/08/24 08:40 Height 5 ft 10 in Weight 236 lb 12.423 oz BMI 34.0 Intake Visit Reasons: Obesity/LVM Allergies No Known Allergies Allergy (Verified 09/01/24 09:41) Nutrition Presentation Details: Pt presents for MNT f/u for obesity Pt reports working on reducing portions from sugary foods Beverages of choice: 2% milk, water, diet beverages, juices (some diluted with water) Including fish 2-3 times a week physical activity: daily life activities +, mindfully keeping active BS Monitoring Most Recent Diabetes Results: Microalb/Creat Ratio TNP 08/02/24 Cholesterol 148 mg/dL (<200) 08/02/24 HDL Cholesterol 39 mg/dL (>40) L 08/02/24 Triglycerides 103 mg/dL (<150) 08/02/24 Creatinine 0.82 mg/dL (0.5-1.4) 08/02/24 Blood Urea Nitrogen 22 mg/dL (9-16) H 08/02/24 Sodium 139 mmol/L (135-145) 08/02/24 Potassium 4.2 mmol/L (3.3-5.1) 08/02/24 Chloride 107 mmol/L (96-108) 08/02/24 Carbon Dioxide 27 mmol/L (22-29) 08/02/24 Calcium 9.3 mg/dL (8.4-10.2) 08/02/24 AST 25 U/L (5-37) 08/02/24 ALT 28 U/L (0-40) 08/02/24 Total Protein 7.0 g/dL (6.5-8.0) 08/02/24 Albumin 4.0 g/dL (3.5-5.0) 08/02/24 [facility] Medical History (Updated 09/01/24 @ 10:23 by BRO Marin) Shingles Depression Anxiety Family History Mother FH: mental illness Father High blood pressure High cholesterol Sister High blood pressure High cholesterol Diabetes Social History Housing: House Patient Tobacco Use Status: Current everyday Tobacco user Cigarette Packs Per Day: 0.5 Cigarettes Per Day: 10 e-Cigarette/Vaping Use: Never Used Second Hand Smoke Exposure: No service: No Current occupational status: employed Current occupational exposures/hazards: No Cognitive needs: No Hearing needs: No Vision needs: No Assessment & Plan Assessment & Plan (1) Obesity (BMI 30-39.9): Code(s): E66.9 - Obesity, unspecified Category: Medical Plan: Wt: 112 Kg ( 08/19 ), 108 kg (09/19) Est kcal needs as per MSJ: 2400 (40% carb, 30% protein/fat) Est fluid needs as per 25-30 ml/d: 3400 Est prot per day as per 1 g/kg bw: 112 Recommend fiber intake : 8-10 g per day and gradually increase to 25-28 g per day for women and 35-38 g for men or as tolerated Recommend sodium intake per day : less than 2300 mg Educated patient on: ( R = reviewed V = verbalizes understanding N/R = needs review N/A = not applicable * Food sources of carbohydrate, adequate serving sizes and its role in various health conditions: R * Differences between complex carbohydrates a simple carbohydrates, role of fiber in diet: R * Lean protein sources of foods: R * Differences between types of fats and role in diet (mono on saturated fat fatty acids, saturated fatty acids, trans fats): R V N/R * Food sources of sodium in salt and healthy modifications for heart health in kidney health: R V R/V * Vitamins and minerals: R V N/R * Healthy plate method concept: R V N/R * Physical activity: Benefits a precaution: R V Patient Instructions: Include a variety of food non starchy vegetables , including dark leafy greens in your diet Continue physical active,combining anaerobic/aerobic exercises Coding Level of Care Code Nutr Indiv Subseq (98427) Diagnoses Obesity (BMI 30-39.9) E66.9 Time Spent (min) 30
== END 2024-09-08 08:59 | disposition home or self-care (01) ==
PROVIDERS: Visit Provider Dietitian, Registered
DX: E66.9 Obesity, unspecified (principal)

== ENCOUNTER → 2024-09-08 08:34 | Outpatient (BNVA) | payer OTHER, SELFPAY | PROVIDERS: Visit Provider Dietitian, Registered | DX: E66.9 Obesity, unspecified (principal); Z68.34 Body mass index [BMI] 34.0-34.9, adult; Z71.3 Dietary counseling and surveillance | CPT/HCPCS: 97803 ==

== ENCOUNTER 2024-09-20 10:15 | Outpatient (AMB) | payer OTHER, SELFPAY ==
--- NOTE | 2024-09-20 10:16 | MHC.PC.OV ---
Vital Signs 09/20/24 10:24 Height 5 ft 10 in Weight 243 lb BMI 34.9 BP 121/76 Blood Pressure Location Rt brachial Position Sitting Respiration 16 Pulse 76 Pulse Source Pulse Oximeter Temp 98.2 F Temp Source Oral Pulse Oximetry (%) 96 Oxygen Delivery Method Room Air Intake Visit Reasons: 1 month follow up Intake Note: patient here for 1 month follow up Public Health Social Worker Required: No Allergies No Known Allergies Allergy (Verified 09/20/24 10:27) Medication List - Last Reconciled 09/20/24 by Nathaniel Fleming CNP buprenorphine ER (Sublocade) mg subcut .monthly fluoxetine 20 mg PO DAILY 30 days Tobacco use date assessed: 09/20/24 Dental Screening Dental Screen Date: 09/20/24 Did you have a dental visit in the last 12 months?: Yes Did you have a dental problem in the last 6 months where you did not have access to dental care?: No Was dental information given to patient?: Patient has dentist HPI HPI Comments History of Present Illness Details The patient is a 44-year-old male presenting with anxiety and depression. The symptoms appear to be well-controlled with current pharmacotherapy, specifically with Prozac. The patient reports a familial history of similar medication use, as his sister has been taking Prozac for years without adverse reactions. There were no new adverse reactions reported by the patient during the visit. The patient also presented with elevated fasting blood glucose. Initial elevated fasting glucose was noted as 125 mg/dL from last month's test. The patient has been advised to repeat the fasting glucose test after a 10-12 hour fast. The elevated bilirubin level measured at 1.1 mg/dL, slightly exceeding the typical reference range of 0-1 mg/dL, is noted without symptoms such as jaundice. [facility] Medical History (Updated 09/20/24 @ 10:42 by Nathaniel Fleming CNP) Shingles Depression Anxiety Family History Mother FH: mental illness Father High blood pressure High cholesterol Sister High blood pressure High cholesterol Diabetes Social History Housing: House Patient Tobacco Use Status: Current everyday Tobacco user Cigarette Packs Per Day: 0.5 Cigarettes Per Day: 10 e-Cigarette/Vaping Use: Never Used Second Hand Smoke Exposure: No service: No Current occupational status: employed Current occupational exposures/hazards: No Cognitive needs: No Hearing needs: No Vision needs: No Questionnaire PHQ-9 Over the last 2 weeks, how often have you been bothered by any of the following problems? 1. Little interest or pleasure in doing things: not at all 2. Feeling down, depressed, or hopeless: not at all 3. Trouble falling or staying asleep, or sleeping too much: several days 4. Feeling tired or having little energy: not at all 5. Poor appetite or overeating: not at all 6. Feeling bad about yourself - or that you are a failure or have let yourself or your family down: not at all 7. Trouble concentrating on things, such as reading the newspaper or watching television: several days 8. Moving or speaking so slowly that other people could have noticed. Or the opposite - being so fidgety or restless that you have been moving around a lot more than usual: not at all 9. Thoughts that you would be better off or of hurting yourself in some way: not at all Total score: 2 Depression Screening Interpretation: Negative Depression Screening Done: Yes 79567 - PHQ-9 Billing: Yes Source: Developed by Drs. Justice Reis, Georgia Reed, Devin Echavarria and colleagues, with an educational kenyatta from [employer]. Thrive Questionnaire Date Thrive assessed: 09/20/24 I am a: Patient What is your living situation today?: I have a steady place to live Within the past 12 months, did the food you bought not last and you didn't have the money to get more?: Never true Within the past 12 months, did you worry whether your food would run out before you got money to buy more?: Never true Do you have trouble paying for medicines?: No Do you have trouble getting transportation to medical appointments?: No Do you have trouble paying your heating and electricity bill?: No Do you have trouble taking care of your child, family member or friend?: No Do you have trouble with day-to-day activities such as bathing, preparing meals, shopping, managing finances, etc.?: No Are you currently unemployed and looking for a job?: I choose not to answer this question Are you interested in more education?: Yes Please select the resources that you would like help with: Job search/training Currently or been in a relationship where the following occur: No concerns reported THRIVE Score: 0 AUDIT C Alcohol Use Questionnaire (AUDIT-C) 1. How often do you have a drink containing alcohol?: 2-3 times a week 2. How many drinks containing alcohol do you have on a typical day when you are drinking?: 1 or 2 3. How often do you have six or more drinks on one occasion?: Never Total Score: 3 Score Reviewed/Action Taken: Yes JORGE-7 AMB Questionnaire JORGE-7 Date JORGE - 7 assessed: 09/20/24 Feeling nervous, anxious, or on edge: 0 = Not at all Not being able to stop or control worryin = Several days Worrying too much about different things: 1 = Several days Trouble relaxin = Several days Being so restless that it is hard to sit still: 1 = Several days Becoming easily annoyed or irritable: 0 = Not at all Feeling afraid as if something awful might happen: 0 = Not at all Total JORGE-7 score (0-4 normal; 5-9 mild; 10-14 moderate; 15-21 severe): 4 Source: Developed by Drs. Justice Reis, Georgia Reed, Devin Echavarria and colleagues, with an educational kenyatta from [employer]. JORGE-7 Assessment Billing JORGE-7 Assessment Tool: JORGE-7 Assessment 57774 Review of Systems Const Details: Const Denies chills, Denies fatigue, Denies fever(s), Denies headache(s) and Denies weakness ENT Denies dizziness and Denies headache(s) Card Denies chest pain, Denies lightheadedness, Denies dyspnea and Denies other (Palpitations) Resp Denies cough, Denies dyspnea, Denies wheezing and Denies other ( shortness of breath) GI Denies abdominal pain, Denies melena, Denies hematochezia, Denies change in bowel habits, Denies dyspepsia and Denies nausea Denies hematuria and Denies dysuria Musc Denies abnormal gait, Denies myalgias, Denies arthralgias, Denies numbness and Denies tingling Skin/Breast Denies rash, Denies unusual bruising and Denies wounds Neuro Denies abnormal gait, Denies dizziness, Denies headache(s), Denies memory loss, Denies numbness, Denies Sensory deficit (Neuro), Denies tingling and Denies weakness Psych Denies anxiety, Denies depression, Denies memory loss Endo Denies cold intolerance, Denies fatigue, Denies heat intolerance, Denies polydipsia and Denies polyuria Aller/Immun Denies wheezing Physical exam (Primary Care) Tobacco/Smoking Status: Tobacco use Status Tobacco use date assessed 09/20/24 09/20/24 10:24 Patient Tobacco Use Status Current everyday Tobacco 09/20/24 10:18 e-Cigarette/Vaping Use Never Used 09/20/24 10:18 PHQ-9: PHQ-9 Score PHQ-9: Total score 2 09/20/24 10:24 Depression Screening Interpretation: Negative Thrive Assessment: Date of Thrive Assessment Date Thrive assessed 09/20/24 09/20/24 10:24 Currently or been in a relationship where the following occur: No concerns reported Const Other: General: no acute distress and well developed Nutritional Appearance: well nourished Orientation/consciousness: patient oriented x3 HENMT Head: Yes normocephalic and Yes atraumatic Eyes General: appearance normal, both eyes and all related structures Pupils: Equal, round and reactive pupils present EOM: EOMs intact bilaterally Resp Effort & Inspection: normal respiratory effort Auscultation: clear to auscultation bilaterally Cardio Rate: regular rate Rhythm: regular rhythm Heart sounds: S1 normal heart sound present, S2 normal heart sound present, no gallops, no murmurs and no rubs GI Palpation (GI): No Abdominal aortic bruit present, Soft to palpation, nontender, No hepatosplenomegaly present and No Rebound tenderness present Auscultation: normal bowel sounds General: Yes no CVA tenderness Back/Spine/Pelvis Back: no CVA tenderness Extrem General: Yes normal to inspection, No edema and No calf tenderness Skin General: warm and dry. Normal skin color. Normal skin turgor Neuro General: patient oriented x3, gait normal and no focal neuro deficit Cranial nerves: Yes Equal, round and reactive pupils present Cognition (Neuro): normal cognition Gait exam (Neuro): Normal gait present Sensory Exam: No Sensory deficit (Neuro) Psych Appearance: grossly normal Affect: normal affect Attitude: cooperative Thought process: Normal thought process present Coding Level of Care Code Est Pt Level 4 (91104) Diagnoses Anxiety F41.9 Depression F32.A Elevated fasting glucose R73.01 Hyperbilirubinemia E80.6 Additional Codes JORGE-7 Assessment Billing - JORGE-7 Assessment Tool: JORGE-7 Assessment 68569 ([id number]) PHQ-9 - 74912 - PHQ-9 Billing: Yes ([id number]) Assessment & Plan Assessment & Plan (1) Anxiety: Code(s): F41.9 - Anxiety disorder, unspecified Category: Medical Plan: Continue with current management using Prozac. (2) Depression: Code(s): F32.A - Depression, unspecified Category: Medical Plan: Plan as above (3) Elevated fasting glucose: Code(s): R73.01 - Impaired fasting glucose Category: Medical Plan: Patient advised to repeat the fasting glucose test after a 10-12 hour fast. (4) Hyperbilirubinemia: Code(s): E80.6 - Other disorders of bilirubin metabolism Category: Medical Plan: Repeat bilirubin test to monitor levels but no immediate concern due to mild elevation. 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 Plan I discussed with the patient the importance of maintaining the current regimen for anxiety and depression management with Prozac. For the elevated blood glucose, I advised a repeat fasting glucose test to ensure accurate monitoring. For bilirubin, although slightly elevated, it was noted without significant concern. Referral to endocrinology for low testosterone level was confirmed, and the upcoming sleep study initiated by the dental hygiene professor was noted. Orders: Orders Glucose Fasting Today R73.01 - Impaired fasting glucose Bilirubin Total Today E80.6 - Other disorders of bilirubin metabolism Patient Instructions: - Continue Prozac once daily for anxiety and depression. - Fast for 10-12 hours prior to next blood glucose test. - Follow up on bilirubin level in future tests. - Keep scheduled appointments with endocrinology and for the sleep study. - Notify the pharmacy in advance for Prozac refills to prevent running out. Patient was informed and verbally consented to the use of an ambient scribe for clinic note documentation during this visit.
[2024-09-20 10:24] VITALS: BP 121/76; PULSE 76; RESP 16; TEMP 36.8; O2SAT 96; BMI 34.9
== END 2024-09-20 10:42 | disposition home or self-care (01) ==
PROVIDERS: PCP Nurse Practitioner Family; Visit Provider Nurse Practitioner Family
DX: F41.9 Anxiety disorder, unspecified (principal); F32.A Depression, unspecified; R73.01 Impaired fasting glucose; E80.6 Other disorders of bilirubin metabolism

== ENCOUNTER → 2024-09-20 10:15 | Outpatient (BNVA) | payer OTHER, SELFPAY | PROVIDERS: PCP Nurse Practitioner Family; Visit Provider Nurse Practitioner Family | DX: F41.9 Anxiety disorder, unspecified (principal); F32.A Depression, unspecified; R73.01 Impaired fasting glucose; E80.6 Other disorders of bilirubin metabolism | CPT/HCPCS: 96127; 99212 ==

== ENCOUNTER 2024-10-07 | Outpatient (REF) | payer OTHER, SELFPAY | END 2024-10-07 00:01 | disposition home or self-care (01) | LOC: CF | PROVIDERS: PCP Nurse Practitioner Family; Visit Provider Dietitian, Registered | DX: E66.9 Obesity, unspecified (principal); Z68.33 Body mass index [BMI] 33.0-33.9, adult; Z71.3 Dietary counseling and surveillance | CPT/HCPCS: 97803 ==

== ENCOUNTER 2024-10-07 12:31 | Outpatient (AMB) | payer OTHER, SELFPAY ==
[2024-10-07 12:40] VITALS: BMI 33.9
--- NOTE | 2024-10-07 12:40 | A.OFFVIS_ITS ---
VS Expanded 10/07/24 12:40 Height 5 ft 10 in Weight 236 lb 8.896 oz BMI 33.9 Intake Visit Reasons: Obesity/Confirmed Allergies No Known Allergies Allergy (Verified 09/20/24 10:27) Nutrition Presentation Details: Pt presents for MNT f/u for obesity Reports working on mindful eating Has difficulties sleeping and when not mindful chooses higher calories foods. BS Monitoring Most Recent Diabetes Results: No Data to Display [facility] Medical History (Updated 09/20/24 @ 10:42 by Nathaniel Fleming CNP) Shingles Depression Anxiety Family History Mother FH: mental illness Father High blood pressure High cholesterol Sister High blood pressure High cholesterol Diabetes Social History Housing: House Patient Tobacco Use Status: Current everyday Tobacco user Cigarette Packs Per Day: 0.5 Cigarettes Per Day: 10 e-Cigarette/Vaping Use: Never Used Second Hand Smoke Exposure: No service: No Current occupational status: employed Current occupational exposures/hazards: No Cognitive needs: No Hearing needs: No Vision needs: No Assessment & Plan Assessment & Plan (1) Obesity (BMI 30-39.9): Code(s): E66.9 - Obesity, unspecified Category: Medical Plan: Wt: 112 Kg ( 08/19 ), 108 kg (09/19) Est kcal needs as per MSJ: 2400 (40% carb, 30% protein/fat) Est fluid needs as per 25-30 ml/d: 3400 Est prot per day as per 1 g/kg bw: 112 Recommend fiber intake : 8-10 g per day and gradually increase to 25-28 g per day for women and 35-38 g for men or as tolerated Recommend sodium intake per day : less than 2300 mg Educated patient on: ( R = reviewed V = verbalizes understanding N/R = needs review N/A = not applicable * Food sources of carbohydrate, adequate serving sizes and its role in various health conditions: R * Differences between complex carbohydrates a simple carbohydrates, role of fiber in diet: R * Lean protein sources of foods: R * Differences between types of fats and role in diet (mono on saturated fat fatty acids, saturated fatty acids, trans fats): R V N/R * Food sources of sodium in salt and healthy modifications for heart health in kidney health: R V R/V * Vitamins and minerals: R V N/R * Healthy plate method concept: R V N/R * Physical activity: Benefits a precaution: R V Patient Instructions: engage in physical activity, goal 30 minutes 3 times a week Dilute beverages with water to reduce on sugar Coding Level of Care Code Nutr Indiv Subseq (91012) Diagnoses Obesity (BMI 30-39.9) E66.9 Time Spent (min) 25
== END 2024-10-07 12:59 | disposition home or self-care (01) ==
PROVIDERS: PCP Nurse Practitioner Family; Visit Provider Dietitian, Registered
DX: E66.9 Obesity, unspecified (principal)

== ENCOUNTER 2024-10-15 15:12 | Outpatient (REF) | payer OTHER, SELFPAY ==
--- NOTE | ~2024-10-15 | MR_ITS ---
EXAMINATION: MR BRAIN WITHOUT AND WITH CONTRAST CLINICAL INFORMATION: Patient reports numbness in right thigh, anxiety, depression, low testosterone. COMPARISON: None available. TECHNIQUE: Multiplanar, multisequence MRI of the brain was obtained before and after the intravenous administration of 5 mL Gadavist. FINDINGS: The sella is not enlarged. The pituitary gland demonstrates homogeneous enhancement. No definitive hypoenhancing focus/lesion identified. The pituitary infundibulum remains midline. The suprasellar cistern is normal. The optic chiasm and prechiasmatic optic nerves are normal. The cavernous sinuses are normal. No acute intracranial hemorrhage or infarct. No abnormal intracranial enhancement. No edema, midline shift or hydrocephalus. No acute extra-axial fluid collections. The osseous structures are unremarkable. The pituitary gland, pineal gland and remaining midline structures are unremarkable. No orbital pathology. Mild mucosal thickening of the paranasal sinuses. Large mucous retention cysts near completely opacifying the left maxillary sinus. Left mastoid effusion. MR/MR head/brain wo/w con IMPRESSION: 1. No acute intracranial abnormality. 2. No definitive pituitary lesion identified. 3. Mild pansinus mucosal disease. Left mastoid effusion. Electronically signed by: Hernan Hopkins MD 10/16/2024 09:27 AM [facility]
[2024-10-15] MEDS: gadobutroL 7.5 ML VIAL IVPUSH (16:12)
== END 2024-10-15 15:13 | disposition home or self-care (01) ==
LOC: HO.MRI 15:12
PROVIDERS: PCP Nurse Practitioner Family; Visit Provider Physical Medicine & Rehabilitation
DX: R79.89 Other specified abnormal findings of blood chemistry (principal)
CPT/HCPCS: 70553; A9585

== ENCOUNTER 2024-11-08 10:42 | Outpatient (REF) | payer OTHER, SELFPAY ==
[2024-11-08 13:28] LABS: Glucose Fasting 141 mg/dL (60-99)
[2024-11-08 13:50] LABS: Bilirubin Total 0.5 mg/dL (0.0-1.0)
[2024-11-08 14:11] LABS: Ferritin 230 ng/mL (20-250)
[2024-11-09 15:53] LABS: Prolactin 4.5 ng/mL (2.0-18.0)
== END 2024-11-08 10:43 | disposition home or self-care (01) ==
LOC: HO.10HDL 10:42
PROVIDERS: Nurse Practitioner Family; Visit Provider Internal Medicine Endocrinology, Diabetes & Metabolism
DX: E80.6 Other disorders of bilirubin metabolism (principal); R73.01 Impaired fasting glucose; R79.89 Other specified abnormal findings of blood chemistry
CPT/HCPCS: 36415; 82247; 82728; 82947; 84146

== ENCOUNTER 2024-12-24 10:45 | Outpatient (AMB) | payer OTHER, SELFPAY ==
--- NOTE | 2024-12-24 10:49 | MHC.PC.OV ---
Vital Signs 12/24/24 10:53 Height 5 ft 10 in Weight 245 lb BMI 35.2 BP 118/64 Blood Pressure Location Rt brachial Position Sitting Respiration 16 Pulse 76 Pulse Source Pulse Oximeter Temp 98.3 F Temp Source Oral Pulse Oximetry (%) 95 Oxygen Delivery Method Room Air Intake Visit Reasons: 3 mos anxiety, depression Intake Note: patient here for 3 month follow up on anxiety and depression Coremaker Bench Required: No Allergies No Known Allergies Allergy (Verified 12/24/24 10:57) Medication List - Last Reconciled 12/24/24 by Nathaniel Fleming CNP buprenorphine ER (Sublocade) mg subcut .monthly fluoxetine 20 mg PO DAILY hydroxyzine HCl mg PO 3XD Tobacco use date assessed: 12/24/24 Dental Screening Dental Screen Date: 12/24/24 Did you have a dental visit in the last 12 months?: Yes Did you have a dental problem in the last 6 months where you did not have access to dental care?: No Was dental information given to patient?: Patient has dentist HPI HPI Comments History of Present Illness Details 44-year-old male presents for anxiety and depression follow-up. He admits to taking his medications as prescribed without adverse reaction. He notes that his anxiety and depressive symptoms are generally well controlled. He generally sleep well. He did not find psychotherapy [facility] for. However, he intends to go to [facility] walk-in to establish with a therapist. He offers no complaints and denies acute symptoms at this time. [facility] Medical History (Updated 09/20/24 @ 10:42 by Nathaniel Fleming CNP) Shingles Depression Anxiety Family History Mother FH: mental illness Father High blood pressure High cholesterol Sister High blood pressure High cholesterol Diabetes Social History Housing: House Patient Tobacco Use Status: Current everyday Tobacco user Cigarette Packs Per Day: 0.5 Cigarettes Per Day: 10 e-Cigarette/Vaping Use: Never Used Second Hand Smoke Exposure: No service: No Current occupational status: employed Current occupational exposures/hazards: No Cognitive needs: No Hearing needs: No Vision needs: No Questionnaire PHQ-9 Over the last 2 weeks, how often have you been bothered by any of the following problems? 1. Little interest or pleasure in doing things: not at all 2. Feeling down, depressed, or hopeless: several days 3. Trouble falling or staying asleep, or sleeping too much: several days 4. Feeling tired or having little energy: several days 5. Poor appetite or overeating: several days 6. Feeling bad about yourself - or that you are a failure or have let yourself or your family down: several days 7. Trouble concentrating on things, such as reading the newspaper or watching television: several days 8. Moving or speaking so slowly that other people could have noticed. Or the opposite - being so fidgety or restless that you have been moving around a lot more than usual: not at all 9. Thoughts that you would be better off or of hurting yourself in some way: not at all Total score: 6 Depression Screening Interpretation: Positive Depression Screening Follow-up: Existing condition and In treatment Depression Screening Done: Yes 47959 - PHQ-9 Billing: Yes Source: Developed by Drs. Justice Reis, Georgia Reed, Devin Echavarria and colleagues, with an educational kenyatta from [employer]. Thrive Questionnaire Date Thrive assessed: 12/24/24 I am a: Patient What is your living situation today?: I have a steady place to live Within the past 12 months, did the food you bought not last and you didn't have the money to get more?: Never true Within the past 12 months, did you worry whether your food would run out before you got money to buy more?: Never true Do you have trouble paying for medicines?: No Do you have trouble getting transportation to medical appointments?: No Do you have trouble paying your heating and electricity bill?: No Do you have trouble taking care of your child, family member or friend?: No Do you have trouble with day-to-day activities such as bathing, preparing meals, shopping, managing finances, etc.?: No Are you currently unemployed and looking for a job?: Yes Are you interested in more education?: Yes Please select the resources that you would like help with: Job search/training Currently or been in a relationship where the following occur: No concerns reported THRIVE Score: 0 AUDIT C Alcohol Use Questionnaire (AUDIT-C) 1. How often do you have a drink containing alcohol?: 2-3 times a week 2. How many drinks containing alcohol do you have on a typical day when you are drinking?: 1 or 2 3. How often do you have six or more drinks on one occasion?: Never Total Score: 3 JORGE-7 AMB Questionnaire JORGE-7 Date JORGE - 7 assessed: 12/24/24 Feeling nervous, anxious, or on edge: 0 = Not at all Not being able to stop or control worryin = Not at all Worrying too much about different things: 1 = Several days Trouble relaxin = Several days Being so restless that it is hard to sit still: 1 = Several days Becoming easily annoyed or irritable: 1 = Several days Feeling afraid as if something awful might happen: 0 = Not at all Total JORGE-7 score (0-4 normal; 5-9 mild; 10-14 moderate; 15-21 severe): 4 Source: Developed by Drs. Justice Reis, Georgia Reed, Devin Echavarria and colleagues, with an educational kenyatta from [employer]. JORGE-7 Assessment Billing JORGE-7 Assessment Tool: JORGE-7 Assessment 00096 Review of Systems Const Details: Const Denies chills, Denies fatigue, Denies fever(s), Denies headache(s) and Denies weakness ENT Denies dizziness and Denies headache(s) Card Denies chest pain, Denies lightheadedness, Denies dyspnea and Denies other (Palpitations) Resp Denies cough, Denies dyspnea, Denies wheezing and Denies other ( shortness of breath) GI Denies abdominal pain, Denies melena, Denies hematochezia, Denies change in bowel habits, Denies dyspepsia and Denies nausea Denies hematuria and Denies dysuria Musc Denies abnormal gait, Denies myalgias, Denies arthralgias, Denies numbness and Denies tingling Skin/Breast Denies rash, Denies unusual bruising and Denies wounds Neuro Denies abnormal gait, Denies dizziness, Denies headache(s), Denies memory loss, Denies numbness, Denies Sensory deficit (Neuro), Denies tingling and Denies weakness Psych Denies anxiety, Denies depression, Denies memory loss Endo Denies cold intolerance, Denies fatigue, Denies heat intolerance, Denies polydipsia and Denies polyuria Aller/Immun Denies wheezing Physical exam (Primary Care) Vital Signs: Last Vital Signs Temp 98.3 F 12/24/24 10:53 Pulse 76 12/24/24 10:53 Resp 16 12/24/24 10:53 BP 118/64 12/24/24 10:53 Pulse Ox 95 12/24/24 10:53 Oxygen Delivery Method Room Air 12/24/24 10:53 BMI result Body Mass Index 35.2 Tobacco/Smoking Status: Tobacco use Status Tobacco use date assessed 12/24/24 12/24/24 10:55 Patient Tobacco Use Status Current everyday Tobacco 12/24/24 10:55 e-Cigarette/Vaping Use Never Used 12/24/24 10:55 PHQ-9: PHQ-9 Score PHQ-9: Total score 6 12/24/24 10:55 Depression Screening Interpretation: Positive Depression Screening Follow-up: Existing condition and In treatment Thrive Assessment: Date of Thrive Assessment Date Thrive assessed 12/24/24 12/24/24 10:55 Currently or been in a relationship where the following occur: No concerns reported Const Other: General: no acute distress and well developed Nutritional Appearance: well nourished Orientation/consciousness: patient oriented x3 HENMT Head: Yes normocephalic and Yes atraumatic Eyes General: appearance normal, both eyes and all related structures Pupils: Equal, round and reactive pupils present EOM: EOMs intact bilaterally Resp Effort & Inspection: normal respiratory effort Auscultation: clear to auscultation bilaterally Cardio Rate: regular rate Rhythm: regular rhythm Heart sounds: S1 normal heart sound present, S2 normal heart sound present, no gallops, no murmurs and no rubs GI Palpation (GI): No Abdominal aortic bruit present, Soft to palpation, nontender, No hepatosplenomegaly present and No Rebound tenderness present Auscultation: normal bowel sounds General: Yes no CVA tenderness Back/Spine/Pelvis Back: no CVA tenderness Cervical Spine: cervical ROM normal and No Cervical spine tenderness Thoracic/Lumbar Spine: thoraco-lumbar ROM normal, No pain with thoraco-lumbar ROM, No thoracic spinal tenderness and No lumbar spinal tenderness Extrem General: Yes normal to inspection, No edema and No calf tenderness Skin General: warm and dry. Normal skin color. Normal skin turgor Neuro General: patient oriented x3, gait normal and no focal neuro deficit Cranial nerves: Yes Equal, round and reactive pupils present Cognition (Neuro): normal cognition Gait exam (Neuro): Normal gait present Sensory Exam: No Sensory deficit (Neuro) Psych Appearance: grossly normal Affect: normal affect Attitude: cooperative Thought process: Normal thought process present Coding Level of Care Code Est Pt Level 3 (40368) Diagnoses Anxiety F41.9 Depression F32.A Additional Codes JORGE-7 Assessment Billing - JORGE-7 Assessment Tool: JORGE-7 Assessment 44151 ([id number]) PHQ-9 - 75787 - PHQ-9 Billing: Yes ([id number]) Assessment & Plan Assessment & Plan (1) Anxiety: Code(s): F41.9 - Anxiety disorder, unspecified Category: Medical Plan: Anxiety and depressive symptoms or generally well controlled. He generally sleeps well. JORGE-7 score is normal. PHQ-9 reveals mild depression. Continue current treatment regimen. Routine exercise encouraged. Encouraged to establish with therapist as needed. Follow-up in 3 months or sooner with symptoms or concerns. Verbalized understanding and agreed with treatment plan (2) Depression: Code(s): F32.A - Depression, unspecified Category: Medical Plan: Plan as above.
[2024-12-24 10:53] VITALS: BP 118/64; PULSE 76; RESP 16; TEMP 36.8; O2SAT 95; BMI 35.2
--- OUTSIDE RECORDS SUMMARY | 2024-12-24 12:18 | XMS_ITS | Encounter Summary ---
Author Organization [facility] Address [address] [place] [address] Care Team Providers Care Armature Repairer Name Role Phone Sanket Cooper MD Primary Care Provider Isaias Wallace MD Primary Care Provider Unavail able Gabino Cooney MD Primary Care Provider [phone] Camden Arredondo MD Primary Care Provider Nader Eason NP Primary Care Provider Unavail able Encounter Details Date Type Department Care Team Description 08/30/2013 Hog Dropper Report Medical Records [address] [place] [id number] Gio Eli MD Social History Tobacco Use Types Packs/Day Years Used Date Smoking Tobacco: Every Day Cigarettes 0.5 10 Alcohol Use Standard Drinks/Week Comments Yes 6.7 (1 standard drink = 0.6 oz p ure alcohol) Sex Assigned at Date Recorded Not on file documented as of this encounter Plan of Treatment Not on file documented as of this encounter Visit Diagnoses Not on filedocumented in this encounter Care Teams Armature Repairer Relationship Specialty Start Date End Date Sanket Cooper MD PCP - General 01/26/08 10/26/14 Isaias Pierre MD PCP - General Internal Medicine 12/28/14 08/22/15 Gabino Cooney MD [address] [place], [place] [phone] PCP - General Internal Medicine 08/23/15 08/24/15 Camden Arredondo MD [address] [place] [address] PCP - General Internal Medicine 08/25/15 09/24/16 Nader Trinidad NP [address] [place] [address] PCP - General Family Practice 09/25/16 documented as of this encounter
--- OUTSIDE RECORDS SUMMARY | 2024-12-24 12:18 | XMS_ITS | Encounter Summary ---
Author Organization [facility] Address [address] [place] [address] Care Team Providers Care Wildlife Biostation Research Ecologist Name Role Phone Camden Arredondo MD Primary Care Provider Nader Eason NP Primary Care Provider Unavail able Reason for Referral * (Urgent) - MANDY Not Received/Patient Declined Specialty Diagnoses / Procedures Referred By Contvalerie t Referred To Contact Dermatology Procedures REFERRAL TO DERMATOLOGY Omer Ramos PA-C [address] [place] [id number] Claudette Moran MD [address] [place] [phone] Referral ID Status Reason Start Date Expiration Date V isits Requested Visits Authorized SEE NOTE MANDY Not Received/Nanci ent Declined 09/11/2015 12/11/2015 1 1 Encounter Details Date Type Department Care Team Description 09/11/2015 Telephone Medicine/Pediatrics - [address] [phone] Omer Ramos PA-C Social History Tobacco Use Types Packs/Day Years Used Date Smoking Tobacco: Every Day Cigarettes 1 10 Smokeless Tobacco: Never Alcohol Use Standard Drinks/Week Comments Yes 6.7 (1 standard drink = 0.6 oz p ure alcohol) Sex Assigned at Date Recorded Not on file documented as of this encounter Miscellaneous Notes * Telephone Encounter - Omer Ramos PA-C - 09/11/2015 10:01 AM EST Order signed * Telephone Encounter - Samina ZepedaBrianP.N. - 09/11/2015 9:12 AM EST Called home # was asked to call pt cell [phone] Unable to get pt in [facility] derm sooner than december Please sign external ref pt was notified * Telephone Encounter - Omer Ramos PA-C - 09/11/2015 8:24 AM EST Please try to get pts derm appointment moved up. documented in this encounter Plan of Treatment Not on file documented as of this encounter Visit Diagnoses Not on filedocumented in this encounter Care Teams Wildlife Biostation Research Ecologist Relationship Specialty Start Date End Date Keya Arredondo-MD Ricardo PCP - General Internal Medicine 08/25/15 09/24/16 Nader Trinidad NP PCP - General Family Practice 09/25/16 documented as of this encounter
--- OUTSIDE RECORDS SUMMARY | 2024-12-24 12:18 | XMS_ITS | Encounter Summary ---
Author Organization [facility] Address [address] [place] [address] Care Team Providers Care Production Generalist Name Role Phone Sanket Cooper MD Primary Care Provider Isaias Wallace MD Primary Care Provider Unavail able Gabino Cooney MD Primary Care Provider [phone] Camden Arredondo MD Primary Care Provider Nader Eason NP Primary Care Provider Unavail able Reason for Visit * Reason Onset Date Comments radiology 03/31/2013 mri testing Encounter Details Date Type Department Care Team Description 03/31/2013 Telephone Podiatry - [place] [address] [place] [address] Heraclio Jha DPM radiology (mri testing) Social History Tobacco Use Types Packs/Day Years Used Date Smoking Tobacco: Every Day Cigarettes 1 10 Alcohol Use Standard Drinks/Week Comments Yes 6.7 (1 standard drink = 0.6 oz p ure alcohol) Sex Assigned at Date Recorded Not on file documented as of this encounter Miscellaneous Notes * Telephone Encounter - Phyllis Lamas - 03/31/2013 8:48 AM EDT Can you please place an order for right foot mri for Lenny? Please see mri report from 03/24/13 for details. Thanks. documented in this encounter Plan of Treatment Not on file documented as of this encounter Visit Diagnoses Not on filedocumented in this encounter Care Teams Production Generalist Relationship Specialty Start Date End Date Sanket Cooper MD PCP - General 01/26/08 10/26/14 Isaias Pierre MD PCP - General Internal Medicine 12/28/14 08/22/15 Gabino Cooney MD [address] [place], [place] [id number] PCP - General Internal Medicine 08/23/15 08/24/15 Camden Arredondo MD [address] [place] [address] PCP - General Internal Medicine 08/25/15 09/24/16 Nader Trinidad NP [address] [place] [address] PCP - General Family Practice 09/25/16 documented as of this encounter
--- OUTSIDE RECORDS SUMMARY | 2024-12-24 12:18 | XMS_ITS | Clinical Summary ---
Author Organization [facility] Address [address] [place] [address] Care Team Providers Care Bobcat Driver/Labor Name Role Phone Nader Trinidad NP Primary Care Provider Surgical History Surgery Date Site/Laterality Comments OTHER SURGICAL HISTORY PROCEDURE: DENIES PREVIOUS SURGERY Medical History Medical History Date Comments Depression DX:Depression Anxiety 03/30/2013 DX:Anxiety Finger infection 05/03/2013 DX:Finger infec tion Family History Medical History Relation Name Comments Depression Father Hyperlipidemia Father Hypertension Father Stroke Grandparent 1 Diabetes Maternal Grandfather Diabetes Sister 1 Relation Name Status Comments Father Alive Grandparent 1 Grandparent 2 Maternal Grandfather Mother Alive Sister 1 Sister 2 Alive Social History Tobacco Use Types Packs/Day Years Used Date Smoking Tobacco: Every Day Cigarettes Smokeless Tobacco: Never Alcohol Use Standard Drinks/Week Comments Yes 6.7 (1 standard drink = 0.6 oz p ure alcohol) Sex and Gender Information Value Date Recorded Sex Assigned at Not on file Legal Sex Male 8:50 PM EST Gender Identity Not on file Sexual Orientation Not on file Obstetrics History Plan of Treatment Health Maintenance Due Date Last Done Comments Hepatitis B Vaccines (1 of 3 - 19+ 3-dose series) 1997 DTaP,Tdap,and Td Vaccines (2 - Td or Tdap) 02/07/2018 02/08/2008 COVID-19 Vaccine (2023-2 5 season) 2024 Influenza Vaccine (#1) 2024 07/09/2012 HIB Vaccines Aged Out No longer eligi ble based on patient's age to complete this topic HPV Vaccines Aged Out No longer eligi ble based on patient's age to complete this topic Hepatitis A Vaccines Aged Out No long er eligible based on patient's age to complete this topic IPV Vaccines Aged Out No longer eligi ble based on patient's age to complete this topic MMR Vaccines Aged Out No longer eligi ble based on patient's age to complete this topic Meningococcal ACWY Vaccine Aged Out N o longer eligible based on patient's age to complete this topic Meningococcal B Vacine Aged Out No lo nger eligible based on patient's age to complete this topic Pneumococcal Vaccine: Pediat rics (0 to 5 Years) and At-Risk Patients (6 to 64 Years) Aged Out No longer eligi ble based on patient's age to complete this topic RSV Immunization Patients Un javed 20 months Aged Out No longer eligible b ased on patient's age to complete this topic Varicella Vaccines Aged Out No longer eligible based on patient's age to complete this topic Care Teams Bobcat Driver/Labor Relationship Specialty Start Date End Date Nader Trinidad NP [address] [place], [place] PCP - General 09/25/16
--- OUTSIDE RECORDS SUMMARY | 2024-12-24 12:18 | XMS_ITS | Encounter Summary ---
Author Organization [facility] Address [address] [place] [address] Care Team Providers Care Inspector Boiler Name Role Phone Sanket Cooper MD Primary Care Provider Isaias Wallace MD Primary Care Provider Unavail able Gabino Cooney MD Primary Care Provider [phone] Camden Arredondo MD Primary Care Provider Nader Eason NP Primary Care Provider Unavail able Encounter Details Date Type Department Care Team Description 08/13/2013 Professional Nurse Report Medical Records [address] [place] [address] Gio Eli MD Social History Tobacco Use [...] on filedocumented in this encounter Care Teams Inspector Boiler Relationship Specialty Start Date End Date Sanket Cooper MD PCP - General 01/26/08 10/26/14 Isaias Pierre MD PCP - General Internal Medicine 12/28/14 08/22/15 Gabino Cooney MD [address] [place], [place] [phone] PCP - General Internal Medicine 08/23/15 08/24/15 Camden Arredondo MD [address] [place] [address] PCP - General Internal Medicine 08/25/15 09/24/16 Nader Trinidad NP [address] [place] [address] PCP - General Family Practice 09/25/16 documented as of this encounter
--- OUTSIDE RECORDS SUMMARY | 2024-12-24 12:18 | XMS_ITS | Encounter Summary ---
Author Organization [facility] Address [address] [facility] [place] [address] Care Team Providers Care Sales And Support Center Agent Name Role Phone Camden Arredondo MD Primary Care Provider Nader Eason NP Primary Care Provider Unavail able Reason for Visit * Reason Onset Date Comments refill request 09/18/2015 Encounter Details Date Type Department Care Team Description 09/18/2015 Refill Adult Medicine [address] [address] Camden Arredondo MD refill request Social History Tobacco Use Types Packs/Day Years Used Date Smoking Tobacco: Every Day Cigarettes 1 10 Smokeless Tobacco: Never Alcohol Use Standard Drinks/Week Comments Yes 6.7 (1 standard drink = 0.6 oz p ure alcohol) Sex Assigned at Date Recorded Not on file documented as of this encounter Miscellaneous Notes * Telephone Encounter - Marcella Saab M.A. - 09/18/2015 10:53 AM EST Last filled 06/09/2013 #[phone] 0 refills. Please review and advise * Telephone Encounter - Jessa Avila - 09/18/2015 10:49 AM EST Patient would like script to be: E-PRESCRIBED/FAXED TO PHARMACY WHEN WAS THE PATIENT'S LAST APPOINTMENT IN ADULT MEDICINE? 09/17/15 WHEN WAS THE LAST TIME THE PATIENT SAW THEIR PCP? HAS NOT MET WITH PCP YET Does patient have an upcoming appointment? Yes 11/10/15 (THE MEDICATION REQUESTED IS ON THE MED LIST ABOVE) All of the medications requested were on the CURRENT MEDS list Did you check the Pharmacy information above?: YES Patient wants: 30 -day supply Is this a mail order prescription request ? NO Patients current insurance carrier is: Payor: [employer] FFS / Plan: [employer] CARE PLUS PLAN / Product Type: MEDICAID RISK documented in this encounter Plan of Treatment Not on file documented as of this encounter Visit Diagnoses Not on filedocumented in this encounter Care Teams Sales And Support Center Agent Relationship Specialty Start Date End Date Camden Arredondo MD PCP - General Internal Medicine 08/25/15 09/24/16 Nader Trinidad NP PCP - General Family Practice 09/25/16 documented as of this encounter
--- OUTSIDE RECORDS SUMMARY | 2024-12-24 12:19 | XMS_ITS | Encounter Summary ---
Author Organization [facility] Address [address] [place] [address] Care Team Providers Care House Calls Nurse Name Role Phone Sanket Cooper MD Primary Care Provider Isaias Wallace MD Primary Care Provider Unavail able Gabino Cooney MD Primary Care Provider [phone] Camden Arredondo MD Primary Care Provider Nader Eason NP Primary Care Provider Unavail able Encounter Details Date Type Department Care Team Description 09/14/2010 Manager Banquet Report Medical Records [address] [place] [id number] Arun Gay Social History Tobacco Use Types Packs/Day Years Used Date Smoking Tobacco: Every Day Cigarettes 1 Alcohol Use Standard Drinks/Week Comments Yes 6.7 (1 standard drink = 0.6 oz p ure alcohol) Sex Assigned at Date Recorded Not on file documented as of this encounter Plan of Treatment Not on file documented as of this encounter Visit Diagnoses Not on filedocumented in this encounter Care Teams House Calls Nurse Relationship Specialty Start Date End Date Sanket Cooper MD PCP - General 01/26/08 10/26/14 Isaias Pierre MD PCP - General Internal Medicine 12/28/14 08/22/15 Gabino Cooney MD [address] [place], [place] [phone] PCP - General Internal Medicine 08/23/15 08/24/15 Camden Arredondo MD [address] [place] [address] PCP - General Internal Medicine 08/25/15 09/24/16 Nader Trinidad NP [address] [place], [place] [phone] PCP - General Family Practice 09/25/16 documented as of this encounter
--- OUTSIDE RECORDS SUMMARY | 2024-12-24 12:19 | XMS_ITS | Encounter Summary ---
Author Organization [facility] Address [address] [facility] [place] [address] Care Team Providers Care Fuselage Framer Name Role Phone Sanket Cooper MD Primary Care Provider Isaias Wallace MD Primary Care Provider Unavail able Gabino Cooney MD Primary Care Provider [phone] Camden Arredondo MD Primary Care Provider Nader Eason NP Primary Care Provider Unavail able Encounter Details Date Type Department Care Team Description 01/01/2012 Telephone Adult Medicine [address] [address] Sanket Cooper MD Social History Tobacco Use Types Packs/Day Years Used Date Smoking Tobacco: Every Day Cigarettes 1 Alcohol Use Standard Drinks/Week Comments Yes 6.7 (1 standard drink = 0.6 oz p ure alcohol) Sex Assigned at Date Recorded Not on file documented as of this encounter Miscellaneous Notes * Telephone Encounter - Juan Jose Lovett L.P.N. - 01/01/2012 10:00 AM EST Called patient at the requests of Manda Walsh RN Mother answered the phone (+VR) cancelled patient appt for today Patient needs an appt with his PCP for this problem Mother will give the patient the message he will ask for Lia to book the appt documented in this encounter Plan of Treatment Not on file documented as of this encounter Visit Diagnoses Not on filedocumented in this encounter Care Teams Fuselage Framer Relationship Specialty Start Date End Date Sanket Cooper MD PCP - General 01/26/08 10/26/14 Isaias Pirere MD PCP - General Internal Medicine 12/28/14 08/22/15 Gabino Cooney MD [address] [place] [address] PCP - General Internal Medicine 08/23/15 08/24/15 Camden Arredondo MD [address] [place], [place] [id number] PCP - General Internal Medicine 08/25/15 09/24/16 Nader Trinidad NP [address] [place] [address] PCP - General Family Practice 09/25/16 documented as of this encounter
== END 2024-12-24 11:12 | disposition home or self-care (01) ==
PROVIDERS: PCP Nurse Practitioner Family; Visit Provider Nurse Practitioner Family
DX: F41.9 Anxiety disorder, unspecified (principal); F32.A Depression, unspecified

== ENCOUNTER → 2024-12-24 10:45 | Outpatient (BNVA) | payer OTHER, SELFPAY | PROVIDERS: PCP Nurse Practitioner Family; Visit Provider Nurse Practitioner Family | DX: F41.9 Anxiety disorder, unspecified (principal); F32.A Depression, unspecified | CPT/HCPCS: 96127; 99212 ==

== ENCOUNTER → 2024-12-29 08:25 | Outpatient (REF) | payer OTHER, SELFPAY ==
--- OUTSIDE RECORDS SUMMARY | 2024-12-29 08:56 | XMS_ITS | Clinical Summary ---
Author Organization [facility] Address [address] [facility] [place] [address] Care Team Providers Care International Account Manager Name Role Phone Nader Trinidad NP Primary Care Provider Unavail able Allergies No known active allergies Medications Medication Sig Dispensed Refills Start Date End Date Status Clobetasol Prop Emollient Base 0.05 % Cream Apply twice daily to affected area for up to 2 weeks 50 g 0 09/09/2015 Active clonazepam (KLONOPIN) 1 MG tablet Take 1 mg by mouth 2 times daily as needed. 0 Active Active Problems Problem Noted Date Heroin abuse 09/03/2016 Overview: At [facility] for detox 09/02/2016 Finger infection 05/03/2013 Anxiety 03/30/2013 Tobacco use disorder 07/09/2012 Cocaine abuse 06/22/2008 Depression Immunizations Name Administration Dates Next Due Influenza (> 6 Months) 07/09/2012 Tdap 02/08/2008 Family History Medical History Relation Name Comments Cholesterol Level Father Depression Father Hypertension Father Stroke Grandparent 2 Diabetes Maternal Grandfather Diabetes Sister 2 Relation Name Status Comments Father Alive Grandparent 1 Grandparent 2 Maternal Grandfather Mother Alive Sister 1 Alive Sister 2 Social History Tobacco Use Types Packs/Day Years Used Date Smoking Tobacco: Every Day Cigarettes 1 10 Smokeless Tobacco: Never Alcohol Use Standard Drinks/Week Comments Yes 6.7 (1 standard drink = 0.6 oz p ure alcohol) Sex Assigned at Date Recorded Not on file Last Filed Vital Signs Vital Sign Reading Time Taken Comments Blood Pressure 114/68 04/04/2016 3:59 PM EDT Pulse 74 04/04/2016 3:59 PM EDT Temperature 36.4 ??C (97.6 ??F) 04/04/2016 3:59 PM ED T Respiratory Rate 20 04/04/2016 3:59 PM EDT Oxygen Saturation 98% 09/09/2015 3:06 PM EST Inhaled Oxygen Concentration - - Weight 106.2 kg (234 lb 3.2 oz) 04/04/2016 3:59 PM EDT Height 180.3 cm (5' 11 ) 04/04/2016 3:59 PM EDT Body Mass Index 32.66 04/04/2016 3:59 PM EDT Plan of Treatment Health Maintenance Due Date Last Done Comments Covid-19 Vaccine (#1) 1978 TOBACCO CHECK/ADVISE 1996 CHOLESTEROL SCREENING 10/02/2017 10/02/2012, 007 DTAP/TDAP/TD (2 - Td or Tdap) 02/07/2018 02/08/2008 BASELINE HEALTH EXAM 40-64 04/22/201810/02, 07/09/2012, 03/10/2008, Additional history exists INFLUENZA (#1) 2024 07/09/2012 BMI CHECK/ADVISE 10/27/2024 10/01/2013 PNEUMOCOCCAL VACCINE FOR HIG H RISK PATIENTS (#1) 2043 Care Teams International Account Manager Relationship Specialty Start Date End Date Nader Trinidad NP PCP - General Family Practice 09/25/16
--- OUTSIDE RECORDS SUMMARY | 2024-12-29 08:56 | XMS_ITS | Encounter Summary ---
Author Organization [facility] Address [address] [facility] [place] [address] Care Team Providers Care Black Ash Burner Operator Name Role Phone Camden Arredondo MD Primary Care Provider Nader Eason NP Primary Care Provider Unavail able Reason for Visit * Reason Onset Date Comments refill request 09/18/2015 Encounter Details Date Type Department Care Team Description 09/18/2015 Refill Adult Medicine [address] [address] Camden Arredondo MD refill request Social History [...] NO Patients current insurance carrier is: Payor: [employer] FFS / Plan: [employer] CARE PLUS PLAN / Product Type: MEDICAID RISK documented in this encounter Plan of Treatment Not on file documented as of this encounter Visit Diagnoses Not on filedocumented in this encounter Care Teams Black Ash Burner Operator Relationship Specialty Start Date End Date Camden Arredondo MD PCP - General Internal Medicine 08/25/15 09/24/16 Nader Trinidad NP PCP - General Family Practice 09/25/16 documented as of this encounter
--- OUTSIDE RECORDS SUMMARY | 2024-12-29 08:56 | XMS_ITS | Clinical Summary ---
Author Organization [facility] Address [address] [place] [address] Care Team Providers Care Tool Room Attendant Name Role Phone Nader Trinidad NP Primary Care Provider [phone] Surgical History Surgery Date Site/Laterality Comments OTHER [...] age to complete this topic Care Teams Tool Room Attendant Relationship Specialty Start Date End Date Nader Trinidad NP [address] [place], [place] PCP - General 09/25/16
--- OUTSIDE RECORDS SUMMARY | 2024-12-29 08:56 | XMS_ITS | Encounter Summary ---
Author Organization [facility] Address [address] [facility] [place] [address] Care Team Providers Care Professor Of Medicine Name Role Phone Sanket Forbes MD Primary Care Provider Isaias Wallace MD Primary Care Provider Unavail able Gabino Cooney MD Primary Care Provider [phone] Camden Arredondo MD Primary Care Provider Nader Eason NP Primary Care Provider Unavail able Reason for Visit * Reason Onset Date Comments Medication 07/15/2011 Encounter Details Date Type Department Care Team Description 07/15/2011 Telephone Adult Medicine [address] [address] Sanket Forbes MD Medication Social History Tobacco Use Types Packs/Day Years Used Date Smoking Tobacco: Every Day Cigarettes 1 Alcohol Use Standard Drinks/Week Comments Yes 6.7 (1 standard drink = 0.6 oz p ure alcohol) Sex Assigned at Date Recorded Not on file documented as of this encounter Miscellaneous Notes * Telephone Encounter - Juan Jose PizarroP.NBrian - 07/15/2011 5:07 PM EDT Called home numbers spoke with mother (+VR) she reports son is spending all kinds of money he admitted to her is is using drugs and wants help Appt Friday with Dr. Forbes at 10:30 * Telephone Encounter - Lobo Wang - 07/15/2011 4:38 PM EDT Symptoms patient is presenting: patient has been in rehab a few years ago for drug addiction. Mom concerned that something does not seem right. Taking a lot of pills again. Patient willing to come inand see Dr Forbes How long has patient had these symptoms?: a few weeks PCP: Sanket Forbes MD Payor: [facility] [employer]sha[employer]re [facility] TYPE 1 $0 [place] [id number] Product Type: O [id number] documented in this encounter Plan of Treatment Not on file documented as of this encounter Visit Diagnoses Not on filedocumented in this encounter Care Teams Professor Of Medicine Relationship Specialty Start Date End Date Sanket Forbes MD PCP - General 01/26/08 10/26/14 Isaias Pierre MD PCP - General Internal Medicine 12/28/14 08/22/15 Gabino Cooney MD [address] [place] [address] PCP - General Internal Medicine 08/23/15 08/24/15 Camden Arredondo MD [address] [place] [address] PCP - General Internal Medicine 08/25/15 09/24/16 Nader Trinidad NP [address] [place] [address] PCP - General Family Practice 09/25/16 documented as of this encounter
--- OUTSIDE RECORDS SUMMARY | 2024-12-29 08:56 | XMS_ITS | Encounter Summary ---
Author Organization [facility] Address [address] [place] [address] Care Team Providers Care Accounting Director Name Role Phone Camden Arredondo MD Primary Care Provider Nader Eason NP Primary Care Provider Unavail able Reason for Referral * (Urgent) - MANDY Not Received/Patient Declined Specialty Diagnoses / Procedures Referred By Contvalerie t Referred To Contact Dermatology Procedures REFERRAL TO DERMATOLOGY Omer Ramos PA-C [address] [place] [id number] Claudette Moran MD [address] [place] [id number] Referral ID Status Reason Start Date Expiration Date V isits Requested Visits Authorized SEE NOTE MANDY Not Received/Nanci ent Declined 09/11/2015 12/11/2015 1 1 Encounter Details Date Type Department Care Team Description 09/11/2015 Telephone Medicine/Pediatrics - [address] [address] Omer Ramos PA-C Social History Tobacco Use [...] # was asked to call pt cell [phone] Unable to get pt in chic office [...] on filedocumented in this encounter Care Teams Accounting Director Relationship Specialty Start Date End Date Keya Arredondo-MD Ricardo PCP - General Internal Medicine 08/25/15 09/24/16 Nader Trinidad NP PCP - General Family Practice 09/25/16 documented as of this encounter
--- OUTSIDE RECORDS SUMMARY | 2024-12-29 08:56 | XMS_ITS | Encounter Summary ---
Author Organization [facility] Address [address] [facility] [place] [address] Care Team Providers Care Vp Patient Name Role Phone Sanket Cooper MD Primary Care Provider Isaias Wallace MD Primary Care Provider Unavail able Gabino Cooney MD Primary Care Provider [phone] Camden Arredondo MD Primary Care Provider Nader Eason NP Primary Care Provider Unavail able Encounter Details Date Type Department Care Team Description 01/01/2012 Telephone Adult Medicine [address] [address] Sanket Cooper MD Social History Tobacco Use [...] on filedocumented in this encounter Care Teams Vp Patient Relationship Specialty Start Date End Date Sanket Cooper MD PCP - General 01/26/08 10/26/14 Isaias Pierre MD PCP - General Internal Medicine 12/28/14 08/22/15 Gabino Cooney MD [address] [place] [address] PCP - General Internal Medicine 08/23/15 08/24/15 Camden Arredondo MD [address] [place], [place] [phone] PCP - General Internal Medicine 08/25/15 09/24/16 Nader Trinidad NP [address] [place] [address] PCP - General Family Practice 09/25/16 documented as of this encounter
== END ==
LOC: HO.SL 08:25
PROVIDERS: PCP Nurse Practitioner Family; Visit Provider Nurse Practitioner Family
DX: R06.83 Snoring (principal); G47.19 Other hypersomnia; G47.9 Sleep disorder, unspecified
CPT/HCPCS: 95806

== ENCOUNTER 2025-02-14 11:36 | Outpatient (REF) | payer OTHER, SELFPAY ==
[2025-02-14 14:47] LABS: Influenza A PCR NEGATIVE (Negative); Influenza B PCR NEGATIVE (Negative); Resp Syncy Virus RNA Qual PCR NEGATIVE (Negative); SARS COV2 PCR INHOUSE NEGATIVE (Negative)
== END 2025-02-14 11:37 | disposition home or self-care (01) ==
LOC: HO.LAB 11:36
PROVIDERS: Nurse Practitioner Family; PCP Nurse Practitioner Family
DX: J06.9 Acute upper respiratory infection, unspecified (principal)
CPT/HCPCS: 0241U; 99212

== ENCOUNTER 2025-02-14 11:36 | Outpatient (AMB) | payer OTHER, SELFPAY ==
--- OUTSIDE RECORDS SUMMARY | 2025-02-14 11:37 | XMS_ITS | Clinical Summary ---
Author Organization [facility] Address [address] [facility] [place] [address] Care Team Providers Care Production Clerks Supervisor Name Role Phone Nader Trinidad NP Primary [...] Noted Date Heroin abuse 09/03/2016 Overview: At [facility] for detox 09/02/2016 Finger infection [...] 40-64 04/22/201810/02, 07/09/2012, 03/10/2008, Additional history exists BMI CHECK/ADVISE 10/27/2024 10/01/2013 INFLUENZA (Season Ended) 2025 07/09/2012 PNEUMOCOCCAL VACCINE FOR HIG H RISK PATIENTS (#1) 2043 Care Teams Production Clerks Supervisor Relationship Specialty Start Date End Date Nader Trinidad NP PCP - General Family Practice 09/25/16
--- OUTSIDE RECORDS SUMMARY | 2025-02-14 11:37 | XMS_ITS | Encounter Summary ---
Author Organization [facility] Address [address] [facility] [place] [address] Care Team Providers Care Call Center Professional Name Role Phone Camden Arredondo MD Primary Care Provider Nader Eason NP Primary Care Provider Unavail able Reason for Visit * Reason Onset Date Comments refill request 09/18/2015 Encounter Details Date Type Department Care Team Description 09/18/2015 Refill Adult Medicine [address] [address] Camden Arredondo MD refill request Social History [...] NO Patients current insurance carrier is: Payor: [employer] FFS / Plan: [employer] CARE PLUS PLAN / Product Type: MEDICAID RISK documented in this encounter Plan of Treatment Not on file documented as of this encounter Visit Diagnoses Not on filedocumented in this encounter Care Teams Call Center Professional Relationship Specialty Start Date End Date Camden Arredondo MD PCP - General Internal Medicine 08/25/15 09/24/16 Nader Trinidad NP PCP - General Family Practice 09/25/16 documented as of this encounter
--- OUTSIDE RECORDS SUMMARY | 2025-02-14 11:37 | XMS_ITS | Encounter Summary ---
Author Organization [facility] Address [address] [facility] [place] [address] Care Team Providers Care Sewing Machine Mechanic Name Role Phone Sanket Cooper MD Primary Care Provider Isaias Wallace MD Primary Care Provider Unavail able Gabino Cooney MD Primary Care Provider [phone] Camden Arredondo MD Primary Care Provider Nader Eason NP Primary Care Provider Unavail able Encounter Details Date Type Department Care Team Description 08/30/2013 Parking Manager Report Medical Records [address] [place] [address] Gio Eli MD Social History Tobacco Use [...] on filedocumented in this encounter Care Teams Sewing Machine Mechanic Relationship Specialty Start Date End Date Sanket Cooper MD PCP - General 01/26/08 10/26/14 Isaias Pierre MD PCP - General Internal Medicine 12/28/14 08/22/15 Gabino Cooney MD [address] [place], [place] [phone] PCP - General Internal Medicine 08/23/15 08/24/15 Camden Arredondo MD [address] [place] [address] PCP - General Internal Medicine 08/25/15 09/24/16 Nader Trinidad NP [address] [place] [address] PCP - General Family Practice 09/25/16 documented as of this encounter
--- OUTSIDE RECORDS SUMMARY | 2025-02-14 11:37 | XMS_ITS | Clinical Summary ---
Author Organization [facility] Address [address] [place] [address] Care Team Providers Care Youth Ministry Director Name Role Phone Nader Trinidad NP Primary Care Provider [phone] Surgical History Surgery Date Site/Laterality Comments OTHER [...] Vaccine (2023-2 5 season) 2024 Influenza Vaccine (Season Ended) 2025 07/09/20 12 HIB Vaccines Aged Out No longer eligi [...] age to complete this topic Meningococcal B Vaccine Aged Out No l onger eligible based on patient's age to complete [...] age to complete this topic Care Teams Youth Ministry Director Relationship Specialty Start Date End Date Nader Trinidad NP [address] [place], [place] PCP - General 09/25/16
--- OUTSIDE RECORDS SUMMARY | 2025-02-14 11:38 | XMS_ITS | Encounter Summary ---
Author Organization [facility] Address [address] [place] [address] Care Team Providers Care Shingle Sawyer Name Role Phone Sanket Cooper MD Primary Care Provider Isaias Wallace MD Primary Care Provider Unavail able Gabino Cooney MD Primary Care Provider [phone] Camden Arredondo MD Primary Care Provider Nader Eason NP Primary Care Provider Unavail able Encounter Details Date Type Department Care Team Description 01/01/2012 Telephone Adult Medicine [address] [address] Sanket Cooper MD Social History Tobacco Use [...] on filedocumented in this encounter Care Teams Shingle Sawyer Relationship Specialty Start Date End Date Sanket Cooper MD PCP - General 01/26/08 10/26/14 Isaias Pierre MD PCP - General Internal Medicine 12/28/14 08/22/15 Gabino Cooney MD [address] [place] [address] PCP - General Internal Medicine 08/23/15 08/24/15 Camden Arredondo MD [address] [place], [place] [phone] PCP - General Internal Medicine 08/25/15 09/24/16 Nader Trinidad NP [address] [place] [address] PCP - General Family Practice 09/25/16 documented as of this encounter
--- OUTSIDE RECORDS SUMMARY | 2025-02-14 11:38 | XMS_ITS | Encounter Summary ---
Author Organization [facility] Address [address] [facility] [place] [address] Care Team Providers Care Asphalt Roller Person Name Role Phone Sanket Cooper MD Primary Care Provider Isaias Wallace MD Primary Care Provider Unavail able Gabino Cooney MD Primary Care Provider [phone] Camden Arredondo MD Primary Care Provider Nader Eason NP Primary Care Provider Unavail able Encounter Details Date Type Department Care Team Description 09/14/2010 Lamination Machine Operator Report Medical Records [address] [place] [address] Arun Gay Social History Tobacco Use Types [...] on filedocumented in this encounter Care Teams Asphalt Roller Person Relationship Specialty Start Date End Date Sanket Cooper MD PCP - General 01/26/08 10/26/14 Isaias Pierre MD PCP - General Internal Medicine 12/28/14 08/22/15 Gabino Cooney MD [address] [place], [place] [phone] PCP - General Internal Medicine 08/23/15 08/24/15 Camden Arredondo MD [address] [place] [address] PCP - General Internal Medicine 08/25/15 09/24/16 Nader Trinidad NP [address] [place], [place] [phone] PCP - General Family Practice 09/25/16 documented as of this encounter
--- OUTSIDE RECORDS SUMMARY | 2025-02-14 11:38 | XMS_ITS | Encounter Summary ---
Author Organization [facility] Address [address] [facility] [place] [address] Care Team Providers Care Waistline Joiner Lockstitch Name Role Phone Sanket Forbes MD Primary Care Provider Isaias Wallace MD Primary Care Provider Unavail able Gabino Cooney MD Primary Care Provider [phone] Camden Arredondo MD Primary Care Provider Nader Eason NP Primary Care Provider Unavail able Reason for Visit * Reason Onset Date Comments Medication 07/15/2011 Encounter Details Date Type Department Care Team Description 07/15/2011 Telephone Adult Medicine [address] [address] Sanket Forbes MD Medication Social History Tobacco Use Types Packs/Day Years Used Date Smoking Tobacco: Every Day Cigarettes 1 Alcohol Use Standard Drinks/Week Comments Yes 6.7 (1 standard drink = 0.6 oz p ure alcohol) Sex Assigned at Date Recorded Not on file documented as of this encounter Miscellaneous Notes * Telephone Encounter - Juan Jose PizarroP.N. - 07/15/2011 5:07 PM EDT Called home [...] few weeks PCP: Sanket Forbes MD Payor: [facility] App[employer] Plan: [facility]ENTER[facility]lightStatsP[facility] TYPE 1 $0 [place] [id number] Product Type: O Shl-stp-Vnwgeky documented in this encounter Plan of Treatment Not on file documented as of this encounter Visit Diagnoses Not on filedocumented in this encounter Care Teams Waistline Joiner Lockstitch Relationship Specialty Start Date End Date Sanket Forbes MD PCP - General 01/26/08 10/26/14 Isaias Pierre MD PCP - General Internal Medicine 12/28/14 08/22/15 Gabino Cooney MD [address] [place] [address] PCP - General Internal Medicine 08/23/15 08/24/15 Camden Arredondo MD [address] [place] [address] PCP - General Internal Medicine 08/25/15 09/24/16 Nader Trinidad NP [address] [place] [address] PCP - General Family Practice 09/25/16 documented as of this encounter
[2025-02-14 11:40] VITALS: BP 116/70; PULSE 82; TEMP 36.5; O2SAT 94
--- NOTE | 2025-02-14 11:40 | MHC.OFFWIV ---
Intake Vital Signs 02/14/25 11:40 Weight 248 lb BP 116/70 Blood Pressure Location Rt brachial Position Sitting Pulse 82 Pulse Source Pulse Oximeter Temp 97.7 F Temp Source Oral Pulse Oximetry (%) 94 Oxygen Delivery Method Room Air Intake Visit Reasons: EP-cough, body ache Intake Note: Patient here for cough, fatigue and body aches that has been present for about 5-6 days. Patient Tobacco Use Status: Current everyday Tobacco user Allergies No Known Allergies Allergy (Verified 02/14/25 11:41) Do you need a note to return to daycare/school/sports/work: No HPI HPI Comments History of Present Illness Details 44 y/o Male patient who presents to the walk in clinic with c/o URI symptoms 5-6 days. Pt reports cough, fatigue and body aches. [facility] Medical History (Updated 02/14/25 @ 11:47 by Juana Cardona NP) Acute respiratory disease Shingles Depression Anxiety Family History Mother FH: mental illness Father High blood pressure High cholesterol Sister High blood pressure High cholesterol Diabetes Social History Housing: House Patient Tobacco Use Status: Current everyday Tobacco user Cigarette Packs Per Day: 0.5 Cigarettes Per Day: 10 e-Cigarette/Vaping Use: Never Used Second Hand Smoke Exposure: No service: No Current occupational status: employed Current occupational exposures/hazards: No Cognitive needs: No Hearing needs: No Vision needs: No Review of Systems Const All systems reviewed & are unremarkable except as noted in HPI and below Physical Exam Vital Signs: Last Vital Signs Temp 97.7 F 02/14/25 11:40 Pulse 82 02/14/25 11:40 BP 116/70 02/14/25 11:40 Pulse Ox 94 02/14/25 11:40 Oxygen Delivery Method Room Air 02/14/25 11:40 Const General: no acute distress; No comfortable Nutritional Appearance: obese Orientation/consciousness: patient oriented x3 HEENT Head: Yes normocephalic Ears: external ears normal and TM abnormal with fluid behind the TM bilateral General nose exam: Abnormal mucous membranes and turbinates present (Nasal congestion) boggy and erythematous and Nasal discharge present Face and sinus: Yes sinus tenderness Mouth: moist mucous membranes Throat: Yes uvula midline Resp Effort & Inspection: normal respiratory effort and able to speak in complete sentences Auscultation: clear to auscultation bilaterally, no crackles, no rales, no rhonchi and no wheezes Cardio Heart sounds: S1 normal heart sound present and S2 normal heart sound present Neuro General: patient oriented x3 Assessment & Plan Assessment & Plan (1) Acute respiratory disease: Code(s): J06.9 - Acute upper respiratory infection, unspecified Plan: Ordered SARs Ordered Z-pack OTC cold/sinus remedies Rest and hydrate well with warm fluids. Acetaminophen for pain relief. Orders: Orders SARS-CoV2/FLU/RSV Today J06.9 - Acute upper respiratory infection, unspecified Medications: New oxymetazoline 0.05% (Afrin Sinus (oxymetazoline)) 2 sprays intranasal Q12H 3 days PRN 22 mL 0RF nasal congestion J06.9 - Acute upper respiratory infection, unspecified doxycycline hyclate 100 mg PO BID 5 days 10 caps 0RF J06.9 - Acute upper respiratory infection, unspecified pseudoephedrine HCl ER (Sudafed 12 Hour) 120 mg PO Q12H 20 tabs 0RF R09.81 - Nasal congestion Coding Level of Care Code Est Pt Level 4 (45085) Diagnoses Acute respiratory disease J06.9 Time Spent (min) 20
== END 2025-02-14 13:11 | disposition home or self-care (01) ==
PROVIDERS: PCP Nurse Practitioner Family; Visit Provider Nurse Practitioner Family
DX: J06.9 Acute upper respiratory infection, unspecified (principal)